=== PATIENT | female | born 1945 | race Caucasian/White ===

== ENCOUNTER 2016-06-05 15:21 | Emergency (ER) | payer MEDICARE, OTHER ==
[~2016-06-05] VITALS: Ht 157.5 cm; Wt 58.0 kg
[2016-06-05 15:30] VITALS: BP 161/91; PULSE 81; RESP 16; TEMP 98.3; O2SAT 100
[2016-06-05] MEDS ORDERED: DULO1CAP3 PO (17:13)
[2016-06-05] MEDS ORDERED: OMEP40CA2 PO (17:13)
[2016-06-05] MEDS ORDERED: PARO40TA2 PO (17:13)
[2016-06-05] MEDS ORDERED: LEVO75TA3 PO (17:13)
[2016-06-05] MEDS ORDERED: OXYB5TAB10 PO (17:13)
[2016-06-05] MEDS ORDERED: TOPI1TAB36 PO (17:13)
[2016-06-05] MEDS ORDERED: PROP1CAP32 PO (17:13)
[2016-06-05] MEDS ORDERED: CLON1TAB PO (17:13)
[2016-06-05] MEDS ORDERED: NEUR300C PO (17:13)
[2016-06-05] MEDS ORDERED: PARO1TAB71 PO (17:13)
[2016-06-05 17:16] VITALS: BP 166/87; PULSE 82; RESP 18; O2SAT 97
[2016-06-05] MEDS ORDERED: SODIUM CHLOR 0.9% 1000 ML INJ 1,000 ML IV SCH (17:24)
[2016-06-05] MEDS ORDERED: HYDROmorphone HCL PF 1 MG/ML VIAL IVS ONE (17:30)
[2016-06-05] MEDS ORDERED: SODIUM CHLORIDE 0.9% FLUSH 5 ML FLUSH IVF PRN (17:30)
[2016-06-05] MEDS ORDERED: ONDANSETRON HCL 4 MG/2 ML VIAL IVP ONE (17:30)
--- NOTE | 2016-06-05 17:36 | PD ---
HPI Chief Complaint: Abdominal Pain Time Seen by Provider: 16:56 Travel History International Travel<30 days: No Contact w/Intl Traveler<30days: No Traveled to known affect area: No History of Present Illness HPI The patient is a 70-year-old female who presents to the emergency department for epigastric abdominal pain. The patient has a history of previous gastric bypass that was performed in 2010 when she weighed 254 pounds. The patient had a reversal done several years later when she weighed less than 100 pounds. The patient has had a history of chronic epigastric abdominal pain since the reversal. The patient traveled from [place] yesterday till [place] , and helps of relocating after her 2 years ago. The patient has been under a lot of stress recently secondary to her living circumstances. The patient complains of epigastric abdominal pain that radiates diffusely when her abdomen is palpated. She does complain of nausea without any vomiting. The patient had a large bowel movement this normal without any visible blood. The patient does have a history of previous hysterectomy, but denies a history pancreatitis or cholecystitis. The patient does drink alcohol occasionally, approximately once per month. Patient denies any fever, chills, or sweats. The patient does have a history of atrial fibrillation for which she takes an antiarrhythmic medication. PFSH Past Medical History Heart Rhythm Problems: Yes (A FIB) Cardiovascular Problems: Yes (hx of a-fib) Diminished Hearing: Yes Headaches: Yes (MIGRAINES) Ulcer: Yes Tetanus Vaccination: Unknown ?: Not Past Surgical History Hysterectomy: Yes Other Surgery: Yes (GASTRIC BYPASS AND REVERSAL) Social History Alcohol Use: Yes Tobacco Use: Yes (10 CIGS PER DAY) Substance Use: No Allergies-Medications (Allergen,Severity, Reaction): Coded Allergies: Codeine (Verified Allergy, Intermediate, headache,n/v, 06/05/16) Morphine (Verified Allergy, Intermediate, headache,n/v, 06/05/16) Oxycontin (Verified Allergy, Intermediate, headaches,n/v, 06/05/16) Reported Meds & Prescriptions Reported Meds & Active Scripts Active Reported Omeprazole 40 Mg Cap 80 Mg PO DAILY Clonazepam 1 Mg Tab 1 Mg PO HS Neurontin (Gabapentin) 300 Mg Cap 900 Mg PO TID Paroxetine (Paroxetine HCl) 10 Mg Tab 10 Mg PO DAILY Ditropan (Oxybutynin Chloride) 5 Mg Tab 5 Mg PO DAILY Levothyroxine (Levothyroxine Sodium) 75 Mcg Tab 75 Mcg PO DAILY Duloxetine DR (Duloxetine HCl) 60 Mg Capdr 60 Mg PO DAILY Propafenone ER (Propafenone HCl) 225 Mg Cap 225 Mg PO Q12HR Topiramate 50 Mg Tab 75 Mg PO HS Paroxetine (Paroxetine HCl) 40 Mg Tab 40 Mg PO DAILY Review of Systems Except as stated in HPI: all other systems reviewed are Neg General / Constitutional: No: Fever, Chills Cardiovascular: Positive: Irregular Rhythm (history of atrial fibrillation), No: Chest Pain or Discomfort Respiratory: No: Shortness of Breath Gastrointestinal: Positive: Nausea, Abdominal Pain, No: Vomiting, Diarrhea, Constipation Genitourinary: No: Dysuria Musculoskeletal: No: Weakness Neurologic: No: Dizziness Physical Exam Narrative GENERAL: Awake, alert, pleasant 70-year-old female who appears her stated age and is in no acute respiratory distress. SKIN: Warm and dry. HEAD: Atraumatic. Normocephalic. EYES: No injection or drainage. ENT: No nasal bleeding or discharge. Slightly dry mucous membranes. NECK: Trachea midline. No JVD. CARDIOVASCULAR: Regular rate and rhythm. No murmur appreciated. RESPIRATORY: No accessory muscle use. Clear to auscultation. Breath sounds equal bilaterally. GASTROINTESTINAL: Abdomen soft, tender to palpation epigastrium and upper quadrant, but no rebound tenderness, guarding, rigidity. MUSCULOSKELETAL: No obvious deformities. No clubbing. No cyanosis. No edema. NEUROLOGICAL: Awake and alert. No obvious cranial nerve deficits. Motor grossly within normal limits. Normal speech. PSYCHIATRIC: Appropriate mood and affect; insight and judgment normal. Data Data Last Documented VS Vital Signs Date Time Temp Pulse Resp B/P Pulse Ox O2 Delivery O2 Flow Rate FiO2 06/05/16 18:56 Room Air 06/05/16 17:16 82 18 166/87 97 06/05/16 15:30 98.3 Orders Urinalysis - C+S If Indicated (06/05/16 15:23) Complete Blood Count With Diff (06/05/16 17:24) Comprehensive Metabolic Panel (06/05/16 17:24) Lipase (06/05/16 17:24) Lactic Acid (06/05/16 17:24) Prothrombin Time / Inr (Pt) (06/05/16 17:24) Act Partial Throm Time (Ptt) (06/05/16 17:24) Ct Abd/Pel W/O Iv Contrast (06/05/16 17:24) Iv Access Insert/Monitor (06/05/16 17:24) Ecg Monitoring (06/05/16 17:24) Oximetry (06/05/16 17:24) Ondansetron Inj (Zofran Inj) (06/05/16 17:30) Sodium Chlor 0.9% 1000 Ml Inj (Ns 1000 M (06/05/16 17:24) Sodium Chloride 0.9% Flush (Ns Flush) (06/05/16 17:30) Electrocardiogram (06/05/16 17:24) Hydromorphone Pf Inj (Dilaudid Pf Inj) (06/05/16 17:30) Sodium Chlorid 0.9% 500 Ml Inj (Ns 500 M (06/05/16 19:15) Labs Laboratory Tests Test 06/05/16 06/05/16 17:30 18:25 White Blood Count 14.0 TH/MM3 Red Blood Count 4.87 MIL/MM3 Hemoglobin 14.8 GM/DL Hematocrit 46.3 % Mean Corpuscular Volume 95.1 FL Mean Corpuscular Hemoglobin 30.4 PG Mean Corpuscular Hemoglobin 32.0 % Concent Red Cell Distribution Width 15.1 % Platelet Count 435 TH/MM3 Mean Platelet Volume 8.6 FL Neutrophils (%) (Auto) 88.1 % Lymphocytes (%) (Auto) 7.5 % Monocytes (%) (Auto) 3.2 % Eosinophils (%) (Auto) 0.1 % Basophils (%) (Auto) 1.1 % Neutrophils # (Auto) 12.4 TH/MM3 Lymphocytes # (Auto) 1.0 TH/MM3 Monocytes # (Auto) 0.4 TH/MM3 Eosinophils # (Auto) 0.0 TH/MM3 Basophils # (Auto) 0.2 TH/MM3 CBC Comment DIFF FINAL Differential Comment Prothrombin Time 10.3 SEC Prothromb Time International 0.9 RATIO Ratio Activated Partial 20.5 SEC Thromboplast Time Sodium Level 140 MEQ/L Potassium Level 3.5 MEQ/L Chloride Level 106 MEQ/L Carbon Dioxide Level 19.3 MEQ/L Anion Gap 15 MEQ/L Blood Urea Nitrogen 15 MG/DL Creatinine 0.64 MG/DL Estimat Glomerular Filtration 92 ML/MIN Rate Random Glucose 162 MG/DL Lactic Acid Level 1.5 mmol/L Calcium Level 9.3 MG/DL Total Bilirubin 0.4 MG/DL Aspartate Amino Transf 10 U/L (AST/SGOT) Alanine Aminotransferase 13 U/L (ALT/SGPT) Alkaline Phosphatase 98 U/L Total Protein 8.1 GM/DL Albumin 4.1 GM/DL Lipase 66 U/L Urine Color YELLOW Urine Turbidity SLIGHT Urine pH 7.0 Urine Specific [place] 1.016 Urine Protein 30 mg/dL Urine Glucose (UA) NEG mg/dL Urine Ketones 40 mg/dL Urine Occult Blood TRACE Urine Nitrite NEG Urine Bilirubin NEG Urine Leukocyte Esterase NEG Urine RBC 0-3 /hpf Urine WBC 0-2 /hpf Urine Squamous Epithelial 0-5 /hpf Cells Urine Amorphous Sediment MOD Urine Hyaline Casts 3-5 /lpf Urine Mucus FEW /lpf Microscopic Urinalysis Comment CULT NOT INDICATED MDM Medical Decision Making Medical Screen Exam Complete: Yes Emergency Medical Condition: Yes Medical Record Reviewed: Yes Interpretation(s) EKG reveals normal sinus rhythm with a rate of 77. No ischemic changes noted. Last Impressions Abdomen/Pelvis CT 06/05/16 1724 Signed Impressions: Service Date/Time: Sunday, June 05, 2016 17:49 - CONCLUSION: 1. Mild constipation. No acute findings. Postoperative changes of gastric bypass surgery, ventral hernia repair and hysterectomy. Carlos Sharma MD Laboratory Tests Test 06/05/16 06/05/16 17:30 18:25 White Blood Count 14.0 TH/MM3 Red Blood Count 4.87 MIL/MM3 Hemoglobin 14.8 GM/DL Hematocrit 46.3 % Mean Corpuscular Volume 95.1 FL Mean Corpuscular Hemoglobin 30.4 PG Mean Corpuscular Hemoglobin 32.0 % Concent Red Cell Distribution Width 15.1 % Platelet Count 435 TH/MM3 Mean Platelet Volume 8.6 FL Neutrophils (%) (Auto) 88.1 % Lymphocytes (%) (Auto) 7.5 % Monocytes (%) (Auto) 3.2 % Eosinophils (%) (Auto) 0.1 % Basophils (%) (Auto) 1.1 % Neutrophils # (Auto) 12.4 TH/MM3 Lymphocytes # (Auto) 1.0 TH/MM3 Monocytes # (Auto) 0.4 TH/MM3 Eosinophils # (Auto) 0.0 TH/MM3 Basophils # (Auto) 0.2 TH/MM3 CBC Comment DIFF FINAL Differential Comment Prothrombin Time 10.3 SEC Prothromb Time International 0.9 RATIO Ratio Activated Partial 20.5 SEC Thromboplast Time Sodium Level 140 MEQ/L Potassium Level 3.5 MEQ/L Chloride Level 106 MEQ/L Carbon Dioxide Level 19.3 MEQ/L Anion Gap 15 MEQ/L Blood Urea Nitrogen 15 MG/DL Creatinine 0.64 MG/DL Estimat Glomerular Filtration 92 ML/MIN Rate Random Glucose 162 MG/DL Lactic Acid Level 1.5 mmol/L Calcium Level 9.3 MG/DL Total Bilirubin 0.4 MG/DL Aspartate Amino Transf 10 U/L (AST/SGOT) Alanine Aminotransferase 13 U/L (ALT/SGPT) Alkaline Phosphatase 98 U/L Total Protein 8.1 GM/DL Albumin 4.1 GM/DL Lipase 66 U/L Urine Color YELLOW Urine Turbidity SLIGHT Urine pH 7.0 Urine Specific [place] 1.016 Urine Protein 30 mg/dL Urine Glucose (UA) NEG mg/dL Urine Ketones 40 mg/dL Urine Occult Blood TRACE Urine Nitrite NEG Urine Bilirubin NEG Urine Leukocyte Esterase NEG Urine RBC 0-3 /hpf Urine WBC 0-2 /hpf Urine Squamous Epithelial 0-5 /hpf Cells Urine Amorphous Sediment MOD Urine Hyaline Casts 3-5 /lpf Urine Mucus FEW /lpf Microscopic Urinalysis Comment CULT NOT INDICATED Differential Diagnosis Differential diagnosis includes gastritis, peptic ulcer disease, pancreatitis, biliary colic, atypical cholecystitis, AAA, inferior myocardial infarction, partial small bowel obstruction. Narrative Course IV was established, labs are drawn and sent, and the patient was placed on cardiac telemetry monitoring and continuous pulse oximetry monitoring. EKG was ordered and interpreted. The patient was administered Dilaudid, Zofran, and IV fluids. CT of the abdomen and pelvis was ordered. Patient's white count is mildly elevated at 14.0. BUN/creatinine are normal, however, bicarbonate was slightly low and UA reveals ketones, therefore, patient was administered more IV fluids. CT of the abdomen and pelvis reveals postoperative changes but no acute findings except for mild constipation. The patient will be discharged home on pain medications and antiemetics. The patient had a large bowel movement earlier today per her report. She is advised to follow-up with a primary physician and return if symptoms worsen or progress. Diagnosis Primary Impression: Abdominal pain Qualified Code: R10.13 - Epigastric pain Additional Instructions: Medications as directed. Follow-up with a primary physician. Return if symptoms worsen or progress. Please provide the patient a copy of her CT results and lab results at discharge. Med/Other Pt SpecificInfo: Prescription(s) given Scripts Ondansetron Odt (Zofran Odt)4 Mg Tab4 Mg SL Q6HR PRN (Nausea/Vomiting) #7 TAB Ref 0 Prov:Hernandez Gutierrez MD 06/05/16 Hydrocodone-Acetaminophen ([place])5-325 mg Tab1 Tab PO Q6H PRN (PAIN) #12 TAB Ref 0 Prov:Hernandez Gutierrez MD 06/05/16 Disposition: 01 DISCHARGE HOME Condition: Stable Hernandez Gutierrez MD Jun 05, 2016 17:36
[2016-06-05 17:42] LABS: AUTOMATED NEUTROPHIL # 12.4 TH/MM3 (1.8-7.7); BASOPHIL # 0.2 TH/MM3 (0-0.2); BASOPHIL % 1.1 % (0.0-2.0); EOSINOPHIL % 0.1 % (0.0-4.0); HEMATOCRIT 46.3 % (35.0-46.0); LYMPH % 7.5 % (9.0-44.0); MEAN CELL VOLUME 95.1 FL (80.0-100.0); MEAN CORPUSCULAR HEMOGLOBIN 30.4 PG (27.0-34.0); MONO % 3.2 % (0.0-8.0); NEUT % 88.1 % (16.0-70.0); PLATELET COUNT 435 TH/MM3 (150-450); RED BLOOD COUNT 4.87 MIL/MM3 (4.00-5.30); RED CELL DISTRIBUTION WIDTH 15.1 % (11.6-17.2)
[2016-06-05 17:48] LABS: HEMO FLAGS DIFF FINAL
[2016-06-05 17:49] LABS: CHLORIDE 106 MEQ/L (98-107); POTASSIUM 3.5 MEQ/L (3.5-5.1); SODIUM (NA) 140 MEQ/L (136-145)
[2016-06-05 17:53] LABS: ANION GAP 15 MEQ/L (5-15); APTT (PATIENT) 20.5 SEC (24.3-30.1); BICARBONATE 19.3 MEQ/L (21.0-32.0); BLOOD UREA NITROGEN 15 MG/DL (7-18); INTERNATIONAL NORMALIZED RATIO 0.9 RATIO; PROTHROMBIN TIME - PATIENT 10.3 SEC (9.8-11.6)
[2016-06-05 17:56] LABS: ALT (GPT) 13 U/L (10-53); AST (GOT) 10 U/L (15-37); GLOMERULAR FILTRATION RATE 92 ML/MIN (>89)
[2016-06-05 17:58] LABS: TOTAL BILIRUBIN ADULT 0.4 MG/DL (0.2-1.0)
[2016-06-05 17:59] LABS: ALKALINE PHOSPHATASE 98 U/L (45-117)
--- NOTE | 2016-06-05 18:49 | RADHPO ---
EXAM DATE/TIME: 06/05/2016 17:49 [facility] COMPARISON: No previous studies available for comparison. INDICATIONS : Epigastric abdomen pain today. ORAL CONTRAST: No oral contrast ingested. RADIATION DOSE: 10.49 CTDIvol (mGy) MEDICAL HISTORY : None SURGICAL HISTORY : Gastric bypass. Hysterectomy.gastric bypass reversal ENCOUNTER: Initial ACUITY: 1 day PAIN SCALE: 7/10 LOCATION: epigastric abdomen TECHNIQUE: Volumetric scanning of the abdomen and pelvis was performed. Using automated exposure control and ad justment of the mA and/or kV according to patient size, radiation dose was kept as low as reasonably achievable to obtain optimal diagnostic quality images. FINDINGS: There is linear scarring left lung base. No acute findings in the liver, spleen, adrenals, kidneys or pancreas. No calcified gallstones. There are postoperative changes of gastric bypass surgery, ventral hernia repair and hysterectomy. There is no bowel obstruction. No free air or free fluid. Mild constipation. CONCLUSION: 1. Mild constipation. No acute findings. Postoperative changes of gastric bypass surgery, ventral her sabrina repair and hysterectomy. Carlos Sharma MD on June 05, 2016 at 18:44 Board Certified Radiologist. This report was verified electronically.
[2016-06-05 18:58] LABS: BLOOD, URINE TRACE (NEG); GLUCOSE,URINE NEG (NEG); KETONE, URINE 40 mg/dL (NEG); NITRITE,URINE NEG (NEG)
[2016-06-05 19:04] LABS: MUCUS URINE FEW /lpf (OCC); URINE COLOR YELLOW (YELLW/STRAW)
[2016-06-05 19:05] LABS: SQUAMOUS EPITHELIAL CELL URINE 0-5 /hpf (0-5); WBC, URINE 0-2 /hpf (0-5)
[2016-06-05 19:06] LABS: COMMENT (UR) CULT NOT INDICATED; CULTURE IF INDICATED CULT NOT INDICATED; RBC, URINE 0-3 /hpf (0-3)
[2016-06-05] MEDS ORDERED: NORC5TAB PO (19:12)
[2016-06-05] MEDS ORDERED: ZOFR4TAB3 SL (19:12)
[2016-06-05] MEDS ORDERED: SODIUM CHLORID 0.9% 500 ML INJ 500 ML IV ONE (19:15)
[2016-06-05 20:18] VITALS: BP 170/89; PULSE 81; RESP 20; TEMP 98.4; O2SAT 97
--- NOTE | 2016-06-06 14:30 | EKG ---
Date Performed: 06/05/2016 Time Performed: 17:37:28 PTAGE: 70 years EKG: Sinus rhythm Normal ECG NO PREVIOUS TRACING DOCTOR: Josh Zhou Interpretating Date/Time 06/06/2016 14:27:32
== END 2016-06-05 21:00 | disposition home or self-care (01) ==
LOC: PHED 15:21
DX: R10.13 Epigastric pain (principal); I48.91 Unspecified atrial fibrillation; F17.210 Nicotine dependence, cigarettes, uncomplicated; Z98.84 Bariatric surgery status
CPT/HCPCS: 74176; 80053; 81001; 83605; 83690; 85025; 85610; 85730; 93005; 96361; 96374; 96375; 99284; J1170; J2405; J7030; J7040

== ENCOUNTER 2016-12-10 15:16 | Emergency (ER) | payer MEDICARE, OTHER ==
[~2016-12-10] VITALS: Ht 157.5 cm; Wt 52.0 kg
[~2016-12-10 15:16] MED LIST: CLON1TAB PO; DULO1CAP3 PO; LEVO75TA3 PO; NEUR300C PO; NORC5TAB PO; OMEP40CA2 PO; OXYB5TAB10 PO; PARO1TAB71 PO; PARO40TA2 PO; PROP1CAP32 PO; TOPI1TAB36 PO; ZOFR4TAB3 SL
[2016-12-10 15:28] VITALS: BP 184/89; PULSE 70; RESP 18; TEMP 97.7; O2SAT 96
--- NOTE | 2016-12-10 15:53 | PD ---
HPI Chief Complaint: Abdominal Pain Time Seen by Provider: 15:36 Travel History International Travel<30 days: No Contact w/Intl Traveler<30days: No Traveled to known affect area: No History of Present Illness HPI This 71-year-old female is complaining of epigastric pain. She has a history of peptic ulcer. She's been having increasing pain since about 3:30 last night. She has been under a lot of stress recently. She recently moved here from [place]. She is on protonic's and has been on Carafate. She ran out of her Carafate. Weeks ago. She did have 2 alcoholic drinks yesterday. She has no history of pancreatitis. She does have a history of gastric bypass in 2010. She developed a lot of complications from the bypass and had a reversed 2013, she had a similar episode to this in May and was seen here at that time [facility] Past Medical History Anxiety: Yes Heart Rhythm Problems: Yes (A FIB) Cardiovascular Problems: Yes (hx of a-fib) Diminished Hearing: Yes Fibromyalgia: Yes Headaches: Yes (MIGRAINES) Ulcer: Yes Influenza Vaccination: Yes ?: Not Past Surgical History Abdominal Surgery: Yes (bypass) Hysterectomy: Yes Joint Replacement: Yes (right knee) Other Surgery: Yes (GASTRIC BYPASS AND REVERSAL) Social History Alcohol Use: Yes Tobacco Use: Yes (10 CIGS PER DAY) Substance Use: No Allergies-Medications (Allergen,Severity, Reaction): Coded Allergies: codeine (Unverified Allergy, Intermediate, headache,n/v, 12/10/16) morphine (Unverified Allergy, Intermediate, headache,n/v, 12/10/16) oxycodone (Unverified Allergy, Intermediate, headaches,n/v, 12/10/16) Reported Meds & Prescriptions Reported Meds & Active Scripts Active Reported Omeprazole 40 Mg Cap 80 Mg PO DAILY Clonazepam 1 Mg Tab 1 Mg PO HS Neurontin (Gabapentin) 300 Mg Cap 900 Mg PO TID Paroxetine (Paroxetine HCl) 10 Mg Tab 10 Mg PO DAILY Ditropan (Oxybutynin Chloride) 5 Mg Tab 5 Mg PO DAILY Levothyroxine (Levothyroxine Sodium) 75 Mcg Tab 75 Mcg PO DAILY Duloxetine DR (Duloxetine HCl) 60 Mg Capdr 60 Mg PO DAILY Topiramate 50 Mg Tab 75 Mg PO HS Paroxetine (Paroxetine HCl) 40 Mg Tab 40 Mg PO DAILY Review of Systems General / Constitutional: No: Fever, Chills Eyes: No: Diploplia, Blurred Vision HENT: No: Headaches, Vertigo Cardiovascular: No: Chest Pain or Discomfort Respiratory: No: Cough, Shortness of Breath Gastrointestinal: Positive: Abdominal Pain Genitourinary: No: Frequency, Dysuria Musculoskeletal: No: Myalgias Skin: No Rash Hematologic/Lymphatic: No: Easy Bruising Physical Exam Narrative GENERAL: Female SKIN: Focused skin assessment warm/dry. HEAD: Atraumatic. Normocephalic. EYES: Pupils equal and round. No scleral icterus. No injection or drainage. ENT: No nasal bleeding or discharge. Mucous membranes pink and moist. NECK: Trachea midline. No JVD. CARDIOVASCULAR: Regular rate and rhythm. No murmur appreciated. RESPIRATORY: No accessory muscle use. Clear to auscultation. Breath sounds equal bilaterally. GASTROINTESTINAL: Abdomen soft, there is epigastric tenderness, nondistended. Hepatic and splenic margins not palpable. MUSCULOSKELETAL: No obvious deformities. No clubbing. No cyanosis. No edema. NEUROLOGICAL: Awake and alert. No obvious cranial nerve deficits. Motor grossly within normal limits. Normal speech. PSYCHIATRIC: Appropriate mood and affect; insight and judgment normal. Data Data Last Documented VS Vital Signs Date Time Temp Pulse Resp B/P (MAP) Pulse Ox O2 Delivery O2 Flow Rate FiO2 12/10/16 15:28 97.7 70 18 184/89 (120) 96 Orders Orders Complete Blood Count With Diff (12/10/16 15:48) Comprehensive Metabolic Panel (12/10/16 15:48) Lipase (12/10/16 15:48) Sodium Chlor 0.9% 1000 Ml Inj (Ns 1000 M (12/10/16 16:00) Ondansetron Inj (Zofran Inj) (12/10/16 16:00) Hydromorphone Pf Inj (Dilaudid Pf Inj) (12/10/16 16:00) [facility] Medical Decision Making Medical Screen Exam Complete: Yes Emergency Medical Condition: Yes Medical Record Reviewed: Yes Differential Diagnosis Differential includes gastritis, pancreatitis Narrative Course Lipase have been ordered. Patient is given pain medication. Diagnosis Primary Impression: Peptic ulcer disease Scripts Sucralfate (Carafate) 1 Gm Tab 1 GM PO QID for Ulcer Prevention, #120 TAB 0 Refills On empty stomach Prov: MacMahon,Antonio MD 12/10/16 Disposition: 01 DISCHARGE HOME Condition: Stable Antonio Bell MD Dec 10, 2016 15:53
[2016-12-10] MEDS ORDERED: CARA1TAB6 PO (15:55)
[2016-12-10] MEDS ORDERED: LIDOCAINE VISCOUS 2% SOLN 15 ML UDC PO STA (15:57)
[2016-12-10] MEDS ORDERED: ONDANSETRON HCL 4 MG/2 ML VIAL IV PUSH ONE (16:00)
[2016-12-10] MEDS ORDERED: SODIUM CHLOR 0.9% 1000 ML INJ 1,000 ML IV ONE (16:00)
[2016-12-10] MEDS ORDERED: ALUMINUM/MAGNESIUM/SIMETH 30 ML CUP PO ONE (16:00)
[2016-12-10] MEDS ORDERED: HYDROmorphone HCL PF 1 MG/ML VIAL IV PUSH ONE (16:00)
[2016-12-10 16:11] LABS: AUTOMATED NEUTROPHIL # 9.1 TH/MM3 (1.8-7.7); BASOPHIL # 0.1 TH/MM3 (0-0.2); BASOPHIL % 1.2 % (0.0-2.0); EOSINOPHIL % 0.3 % (0.0-4.0); HEMATOCRIT 51.6 % (35.0-46.0); HEMO FLAGS DIFF FINAL; LYMPH % 9.1 % (9.0-44.0); MEAN CELL VOLUME 98.2 FL (80.0-100.0); MEAN CORPUSCULAR HEMOGLOBIN 30.9 PG (27.0-34.0); MEAN CORPUSCULAR HGB CONC 31.4 % (32.0-36.0); MONO % 2.5 % (0.0-8.0); NEUT % 86.9 % (16.0-70.0); PLATELET COUNT 486 TH/MM3 (150-450); RED BLOOD COUNT 5.25 MIL/MM3 (4.00-5.30); RED CELL DISTRIBUTION WIDTH 15.6 % (11.6-17.2); WHITE BLOOD COUNT 10.5 TH/MM3 (4.0-11.0)
[2016-12-10 16:19] LABS: CHLORIDE 99 MEQ/L (98-107); POTASSIUM 4.3 MEQ/L (3.5-5.1); SODIUM (NA) 135 MEQ/L (136-145)
[2016-12-10 16:23] LABS: ANION GAP 12 MEQ/L (5-15); BICARBONATE 23.6 MEQ/L (21.0-32.0); BLOOD UREA NITROGEN 13 MG/DL (7-18)
[2016-12-10 16:26] LABS: ALT (GPT) 16 U/L (10-53); AST (GOT) 14 U/L (15-37); GLOMERULAR FILTRATION RATE 107 ML/MIN (>89)
[2016-12-10 16:27] LABS: TOTAL BILIRUBIN ADULT 0.4 MG/DL (0.2-1.0)
[2016-12-10 16:28] LABS: ALKALINE PHOSPHATASE 87 U/L (45-117)
[2016-12-10] MEDS ORDERED: SUCRALFATE 1 GM TAB PO ONE (16:45)
--- NOTE | 2016-12-10 17:06 | PD ---
Data Data Last Documented VS Vital Signs Date Time Temp Pulse Resp B/P (MAP) Pulse Ox O2 Delivery O2 Flow Rate FiO2 12/10/16 15:28 97.7 70 18 184/89 (120) 96 Orders Orders Complete Blood Count With Diff (12/10/16 15:48) Comprehensive Metabolic Panel (12/10/16 15:48) Lipase (12/10/16 15:48) Sodium Chlor 0.9% 1000 Ml Inj (Ns 1000 M (12/10/16 16:00) Ondansetron Inj (Zofran Inj) (12/10/16 16:00) Hydromorphone Pf Inj (Dilaudid Pf Inj) (12/10/16 16:00) Al-Mag Hy-Si 40-40-4 Mg/Ml Liq (Mag-Al P (12/10/16 16:00) Lidocaine 2% Viscous (Xylocaine 2% Visco (12/10/16 15:57) Electrocardiogram (12/10/16 ) Sucralfate (Carafate) (12/10/16 16:45) Labs Laboratory Tests Test 12/10/16 16:00 White Blood Count 10.5 TH/MM3 Red Blood Count 5.25 MIL/MM3 Hemoglobin 16.2 GM/DL Hematocrit 51.6 % Mean Corpuscular Volume 98.2 FL Mean Corpuscular Hemoglobin 30.9 PG Mean Corpuscular Hemoglobin Concent 31.4 % Red Cell Distribution Width 15.6 % Platelet Count 486 TH/MM3 Mean Platelet Volume 8.1 FL Neutrophils (%) (Auto) 86.9 % Lymphocytes (%) (Auto) 9.1 % Monocytes (%) (Auto) 2.5 % Eosinophils (%) (Auto) 0.3 % Basophils (%) (Auto) 1.2 % Neutrophils # (Auto) 9.1 TH/MM3 Lymphocytes # (Auto) 1.0 TH/MM3 Monocytes # (Auto) 0.3 TH/MM3 Eosinophils # (Auto) 0.0 TH/MM3 Basophils # (Auto) 0.1 TH/MM3 CBC Comment DIFF FINAL Differential Comment Blood Urea Nitrogen 13 MG/DL Creatinine 0.56 MG/DL Random Glucose 158 MG/DL Total Protein 8.0 GM/DL Albumin 3.8 GM/DL Calcium Level 9.8 MG/DL Alkaline Phosphatase 87 U/L Aspartate Amino Transf (AST/SGOT) 14 U/L Alanine Aminotransferase (ALT/SGPT) 16 U/L Total Bilirubin 0.4 MG/DL Sodium Level 135 MEQ/L Potassium Level 4.3 MEQ/L Chloride Level 99 MEQ/L Carbon Dioxide Level 23.6 MEQ/L Anion Gap 12 MEQ/L Estimat Glomerular Filtration Rate 107 ML/MIN Lipase 87 U/L [facility] Supervised Visit with MIRANDA: No Narrative Course The patient was initially evaluated by the previous provider and sent out to me at the beginning of my shift at approximately 4:00 PM pending labs and disposition. See his note for further details. Briefly this is a 71-year-old female with history of peptic ulcer disease who recently had an upper endoscopy about a month ago showing peptic ulcers who is on Protonix and Carafate, however ran out of her Carafate 3 weeks ago, here for evaluation of epigastric abdominal pain since yesterday. Pain feels very similar to exacerbation of peptic ulcer disease in the past. She was provided Dilaudid, Protonix, GI cocktail, and Carafate here in the emergency department. On reassessment she is feeling significantly improved. Her abdominal exam shows no tenderness. EKG shows sinus, rate 68, normal axis, short IA interval, prolonged QT interval, no acute ischemic abnormalities. CBC is remarkable for hemoglobin 16.6, hematocrit 51.6. The patient smokes. CMP is unremarkable. Lipase is 87. Patient feels well enough to be discharged home. She was informed on when to return to the emergency department. PMD follow-up this week. She verbalizes understanding and agreement with plan. Diagnosis Primary Impression: Peptic ulcer disease Referrals: Primary Care Physician 1 week Additional Instruction: Follow-up with a primary care physician this week. Return to the emergency department for worsening symptoms or any other concerns. Scripts Sucralfate (Carafate) 1 Gm Tab 1 GM PO QID for Ulcer Prevention, #120 TAB 0 Refills On empty stomach Prov: Antonio Bell MD 12/10/16 Disposition: 01 DISCHARGE HOME Condition: Stable Vinay Longo MD Dec 10, 2016 17:06
--- NOTE | 2016-12-10 22:19 | EKG ---
Date Performed: 12/10/2016 Time Performed: 16:28:27 PTAGE: 71 years EKG: Sinus rhythm WITH SHORT AL INTERVAL PROLONGED QT INTERVAL ABNORMAL ECG PREVIOUS TRACING : 06/05/2016 17.37 Compared to prior tracing no significant change DOCTOR: Alessio Kruse Interpretating Date/Time 12/10/2016 22:18:01
[2017-01-19] MEDS ORDERED: CARA1TAB6 PO (16:43)
[2017-01-23] MEDS ORDERED: TOPI1TAB36 PO (15:10)
[2017-01-23] MEDS ORDERED: CLON1TAB PO (15:41)
[2017-01-27] MEDS ORDERED: NEUR300C PO (14:34)
[2017-01-27] MEDS ORDERED: OXYB5TAB10 PO (14:34)
== END 2016-12-10 17:42 | disposition home or self-care (01) ==
LOC: PHED 15:16
DX: K27.9 Peptic ulcer, site unspecified, unspecified as acute or chronic, without hemorrhage or perforation (principal); R94.31 Abnormal electrocardiogram [ECG] [EKG]; I48.91 Unspecified atrial fibrillation; M79.7 Fibromyalgia; F17.210 Nicotine dependence, cigarettes, uncomplicated; Z98.84 Bariatric surgery status
CPT/HCPCS: 80053; 83690; 85025; 93005; 96361; 96374; 96375; 99284; J1170; J2405; J7030

== ENCOUNTER 2016-12-13 10:45 | Inpatient (IN) | payer MEDICARE, OTHER ==
[2016-12-13] VITALS (8 sets, daily range): BP systolic 139–185; BP diastolic 74–98; PULSE 73–91; RESP 16–18; TEMP 98–99.5; O2SAT 94–98
[~2016-12-13] VITALS: Ht 157.5 cm; Wt 54.5 kg
[~2016-12-13 10:45] MED LIST changes: +CARA1TAB6 PO
[2016-12-13] MEDS ORDERED: HYDROmorphone HCL PF 1 MG/ML VIAL IV PUSH ONE (11:15)
[2016-12-13] MEDS ORDERED: PANTOPRAZOLE SODIUM 40 MG VIAL IV PUSH ONE (11:15)
[2016-12-13] MEDS ORDERED: ONDANSETRON HCL 4 MG/2 ML VIAL IV PUSH ONE ×2 (11:15→13:15)
[2016-12-13] MEDS ORDERED: SODIUM CHLORID 0.9% 500 ML INJ 500 ML IV ONE (11:15)
[2016-12-13 11:34] LABS: BLOOD, URINE MOD (NEG); GLUCOSE,URINE NEG (NEG); KETONE, URINE NEG (NEG); NITRITE,URINE NEG (NEG)
--- NOTE | 2016-12-13 11:38 | PD ---
HPI Chief Complaint: Abdominal Pain Time Seen by Provider: 11:04 Travel History International Travel<30 days: No Contact w/Intl Traveler<30days: No Traveled to known affect area: No History of Present Illness HPI 71-year-old female is noting progressive epigastric abdominal pain since she was here. She states that Carafate liquid usually works better for her than pills but this pain is gotten to the point that it is worse and she cannot tolerate it. She is worried something more severe is going on. Quality pain is sharp. Severity severe per patient. She denies specific modifying factors. She denies other concurrent complaints. PFSH Past Medical History Anxiety: Yes Heart Rhythm Problems: Yes (A FIB) Cardiovascular Problems: Yes (hx of a-fib) Diminished Hearing: Yes Fibromyalgia: Yes Headaches: Yes (MIGRAINES) Ulcer: Yes Past Surgical History Abdominal Surgery: Yes (bypass) Hysterectomy: Yes Joint Replacement: Yes (right knee) Other Surgery: Yes (GASTRIC BYPASS AND REVERSAL) Social History Alcohol Use: Yes Tobacco Use: Yes (10 CIGS PER DAY) Substance Use: No Allergies-Medications (Allergen,Severity, Reaction): Coded Allergies: codeine (Unverified Allergy, Intermediate, headache,n/v, 12/13/16) morphine (Unverified Allergy, Intermediate, headache,n/v, 12/13/16) oxycodone (Unverified Allergy, Intermediate, headaches,n/v, 12/13/16) Reported Meds & Prescriptions Reported Meds & Active Scripts Active Carafate (Sucralfate) 1 Gm Tab 1 Gm PO QID On empty stomach Reported Omeprazole 40 Mg Cap 80 Mg PO DAILY Clonazepam 1 Mg Tab 1 Mg PO HS Neurontin (Gabapentin) 300 Mg Cap 900 Mg PO TID Paroxetine (Paroxetine HCl) 10 Mg Tab 10 Mg PO DAILY Ditropan (Oxybutynin Chloride) 5 Mg Tab 5 Mg PO DAILY Levothyroxine (Levothyroxine Sodium) 75 Mcg Tab 75 Mcg PO DAILY Duloxetine DR (Duloxetine HCl) 60 Mg Capdr 60 Mg PO DAILY Topiramate 50 Mg Tab 75 Mg PO HS Paroxetine (Paroxetine HCl) 40 Mg Tab 40 Mg PO DAILY Review of Systems Except as stated in HPI: all other systems reviewed are Neg Physical Exam Narrative GENERAL: Well-nourished, well-developed patient. Uncomfortable SKIN: Warm and dry. HEAD: Normocephalic and atraumatic. EYES: No injection or drainage. ENT: No nasal drainage noted. NECK: Supple, trachea midline. CARDIOVASCULAR: Regular rate and rhythm RESPIRATORY: Breath sounds equal bilaterally. No accessory muscle use. GASTROINTESTINAL: Abdomen soft, tender in epigastric area, nondistended. EXTREMITIES: No edema. NEUROLOGICAL: Awake and alert. Motor and sensory grossly within normal limits. Normal speech. Data Data Last Documented VS Vital Signs Date Time Temp Pulse Resp B/P (MAP) Pulse Ox O2 Delivery O2 Flow Rate FiO2 12/13/16 11:36 97 Room Air 12/13/16 10:58 98.4 91 16 185/98 (127) Orders Orders Complete Blood Count With Diff (12/13/16 11:15) Comprehensive Metabolic Panel (12/13/16 11:15) Urinalysis - C+S If Indicated (12/13/16 11:15) Lipase (12/13/16 11:15) Iv Access Insert/Monitor (12/13/16 11:15) Oximetry (12/13/16 11:15) Pantoprazole Inj (Protonix Inj) (12/13/16 11:15) Ct Abd/Pel W/O Iv Contrast (12/13/16 ) Hydromorphone Pf Inj (Dilaudid Pf Inj) (12/13/16 11:15) Ondansetron Inj (Zofran Inj) (12/13/16 11:15) Sodium Chlorid 0.9% 500 Ml Inj (Ns 500 M (12/13/16 11:15) Ct Abd/Pel W Iv Contrast(Rout) (12/13/16 ) Diatrizoate Liq ( Gastrodayami Liq) (12/13/16 13:02) Ondansetron Inj (Zofran Inj) (12/13/16 13:15) Admit Order (Ed Use Only) (12/13/16 13:10) Labs Laboratory Tests Test 12/13/16 11:30 White Blood Count 15.4 TH/MM3 Red Blood Count 5.43 MIL/MM3 Hemoglobin 17.0 GM/DL Hematocrit 52.2 % Mean Corpuscular Volume 96.2 FL Mean Corpuscular Hemoglobin 31.4 PG Mean Corpuscular Hemoglobin Concent 32.6 % Red Cell Distribution Width 14.9 % Platelet Count 591 TH/MM3 Mean Platelet Volume 7.9 FL Neutrophils (%) (Auto) 76.5 % Lymphocytes (%) (Auto) 12.1 % Monocytes (%) (Auto) 7.2 % Eosinophils (%) (Auto) 0.1 % Basophils (%) (Auto) 4.1 % Neutrophils # (Auto) 11.8 TH/MM3 Lymphocytes # (Auto) 1.9 TH/MM3 Monocytes # (Auto) 1.1 TH/MM3 Eosinophils # (Auto) 0.0 TH/MM3 Basophils # (Auto) 0.6 TH/MM3 CBC Comment DIFF FINAL Differential Comment Urine Collection Type CLEAN CATCH Urine Color YELLOW Urine Turbidity SLIGHT Urine pH 8.0 Urine Specific [place] 1.015 Urine Protein 300 OR GREATER mg/dL Urine Glucose (UA) NEG mg/dL Urine Ketones NEG mg/dL Urine Occult Blood MOD Urine Nitrite NEG Urine Bilirubin NEG Urine Leukocyte Esterase NEG Urine RBC 15-19 /hpf Urine WBC 0-2 /hpf Urine Squamous Epithelial Cells 0-5 /hpf Urine Renal Epithelial Cells 0-5 /hpf Urine Amorphous Sediment LARGE Microscopic Urinalysis Comment CULT NOT INDICATED Urine Collection Time 11:30 Blood Urea Nitrogen 13 MG/DL Creatinine 0.95 MG/DL Random Glucose 163 MG/DL Total Protein 8.3 GM/DL Albumin 3.9 GM/DL Calcium Level 9.3 MG/DL Alkaline Phosphatase 81 U/L Aspartate Amino Transf (AST/SGOT) 12 U/L Alanine Aminotransferase (ALT/SGPT) 14 U/L Total Bilirubin 0.3 MG/DL Sodium Level 131 MEQ/L Potassium Level 3.4 MEQ/L Chloride Level 93 MEQ/L Carbon Dioxide Level 29.3 MEQ/L Anion Gap 9 MEQ/L Estimat Glomerular Filtration Rate 58 ML/MIN Lipase 110 U/L [facility] Medical Decision Making Medical Screen Exam Complete: Yes Emergency Medical Condition: Yes Medical Record Reviewed: Yes (past history confirm, recent ER visit reviewed with lab work within normal limits) Interpretation(s) CBC & BMP Diagram 12/13/16 11:30 Total Protein 8.3 H, Albumin 3.9, Calcium Level 9.3, Alkaline Phosphatase 81, Aspartate Amino Transf (AST/SGOT) 12 L, Alanine Aminotransferase (ALT/SGPT) 14, Total Bilirubin 0.3 Last 24 hours Impressions Abdomen/Pelvis CT 12/13/16 0000 Signed Impressions: Service Date/Time: Tuesday, December 13, 2016 11:47 - CONCLUSION: There are interim surgical [place] in the small bowel in the pelvic inlet right abdomen with an isolated loop of prominent small bowel. Additionally in the upper abdomen there is a comma shaped loop of bowel with maximum width being approximately a centimeters of its left side and on the right gradually tapering into a narrow area. This latter finding suggest the possibility of a volvulus No evidence of renal or ureteral calculi or obstructive uropathy. Gurvinder Hayes MD Discussed with radiologist who recommends long contrast by mouth study versus barium enema ct with oral contrast no volvulus, distended bowel loop noted question etiology Differential Diagnosis Ulcer, gastritis, pancreatitis, stone, musculoskeletal Narrative Course Will recheck blood work and check CT abdomen pelvis given extent of pain and dose with Dilaudid and Zofran and reevaluate On reexamination patient is starting to feel better after Dilaudid, updated about CT and confirmed prior surgeries with initial gastric bypass in 2010 with reversal in 2012. She states she's had probably totaled 15 surgeries given issues with her bypass but the most recent was in 2012. will check lactic and dose with one dose of zosyn while awaiting testing 1315 patient updated and agrees to care, zofran given for nausea, nurse informed and giving contrast, patient will be admitted Physician Communication Physician Communication 1234 dr shaffer states will review images and call me back, will need to be in [facility] [address] shaffer again and states to give oral contrast for better visualization [address] Shaffer and after review of bed availability at [facility] he wants patient admitted to medicine now in [facility] and work on getting her transferred up here as soon as possible while awaiting study 1450 dr shaffer updated about ct and given no volvulus on ct can stay in [place] and cancel surgery consult dr oscar updated that unable to get hold of gi for almost 2 hours and consult placed in computer and will change to [place] for admission Diagnosis Primary Impression: Abdominal pain Qualified Codes: R10.13 - Epigastric pain Additional Impression: Leukocytosis Qualified Codes: D72.829 - Elevated white blood cell count, unspecified Admitting Information Admitting Physician Requests: Admit Lesly Sahu MD Dec 13, 2016 11:38
[2016-12-13 11:41] LABS: AUTOMATED NEUTROPHIL # 11.8 TH/MM3 (1.8-7.7); BASOPHIL # 0.6 TH/MM3 (0-0.2); BASOPHIL % 4.1 % (0.0-2.0); EOSINOPHIL % 0.1 % (0.0-4.0); HEMATOCRIT 52.2 % (35.0-46.0); HEMO FLAGS DIFF FINAL; LYMPH % 12.1 % (9.0-44.0); LYMPHOCYTE # 1.9 TH/MM3 (1.0-4.8); MEAN CELL VOLUME 96.2 FL (80.0-100.0); MEAN CORPUSCULAR HEMOGLOBIN 31.4 PG (27.0-34.0); MEAN CORPUSCULAR HGB CONC 32.6 % (32.0-36.0); MONO % 7.2 % (0.0-8.0); NEUT % 76.5 % (16.0-70.0); PLATELET COUNT 591 TH/MM3 (150-450); RED BLOOD COUNT 5.43 MIL/MM3 (4.00-5.30); RED CELL DISTRIBUTION WIDTH 14.9 % (11.6-17.2); WHITE BLOOD COUNT 15.4 TH/MM3 (4.0-11.0)
[2016-12-13 11:43] LABS: METHOD OF COLLECTION CLEAN CATCH; RBC, URINE 15-19 /hpf (0-3); URINE COLOR YELLOW (YELLW/STRAW); WBC, URINE 0-2 /hpf (0-5)
[2016-12-13 11:44] LABS: COMMENT (UR) CULT NOT INDICATED; CULTURE IF INDICATED CULT NOT INDICATED; RENAL EPITHELIAL CELLS 0-5 /hpf; SQUAMOUS EPITHELIAL CELL URINE 0-5 /hpf (0-5)
[2016-12-13 12:10] LABS: ALKALINE PHOSPHATASE 81 U/L (45-117); ALT (GPT) 14 U/L (10-53); ANION GAP 9 MEQ/L (5-15); AST (GOT) 12 U/L (15-37); BICARBONATE 29.3 MEQ/L (21.0-32.0); BLOOD UREA NITROGEN 13 MG/DL (7-18); CHLORIDE 93 MEQ/L (98-107); GLOMERULAR FILTRATION RATE 58 ML/MIN (>89); POTASSIUM 3.4 MEQ/L (3.5-5.1); SODIUM (NA) 131 MEQ/L (136-145); TOTAL BILIRUBIN ADULT 0.3 MG/DL (0.2-1.0)
--- NOTE | 2016-12-13 12:10 | RADRPT ---
EXAM DATE/TIME: 12/13/2016 11:47 [facility] COMPARISON: CT ABDOMEN & PELVIS W/O CONTRAST, June 05, 2016, 17:49. INDICATIONS : Mid abdominal pain. Evaluate for calculi. ORAL CONTRAST: No oral contrast ingested. RADIATION DOSE: 7.93 CTDIvol (mGy) MEDICAL HISTORY : None SURGICAL HISTORY : Gastric bypass. ENCOUNTER: Initial ACUITY: 2 days PAIN SCALE: 7/10 LOCATION: abdomen TECHNIQUE: Volumetric scanning of the abdomen and pelvis was performed. Using automated exposure control and ad justment of the mA and/or kV according to patient size, radiation dose was kept as low as reasonably achievable to obtain optimal diagnostic quality images. DICOM format image data is available electro nically for review and comparison. FINDINGS: Postoperative changes of gastric bypass surgery appreciated as well as ventral hernia repair and hyst erectomy. Additionally in the antrum there is apparently surgical clips in the region of small bowel at the pelvic inlet. This isolated loop of small bowel which is somewhat prominent remainder small lois wel being prominent. In the upper abdomen there is a condylar shaped loop of bowel which in one proje ction to the left has a increased width of 8 cm and tapers toward the right abdomen. Tension this cou ld represent some type of volvulus. CONCLUSION: There are interim surgical [place] in the small bowel in the pelvic inlet right abdomen with an isola lonnie loop of prominent small bowel. Additionally in the upper abdomen there is a comma shaped loop of bowel with maximum width being approximately a centimeters of its left side and on the right graduall y tapering into a narrow area. This latter finding suggest the possibility of a volvulus No evidence of renal or ureteral calculi or obstructive uropathy. Gurvinder Hayes MD on December 13, 2016 at 11:57 Board Certified Radiologist. This report was verified electronically.
[2016-12-13] MEDS ORDERED: DIATRIZOATE MEGLUM/DIATRIZOATE SOD 9 ML CUP ONE (13:02)
[2016-12-13] MEDS ORDERED: PIPERACIL-TAZO 4.5 GM PREMIX 100 ML IV STA (13:16)
[2016-12-13] MEDS ORDERED: NALOXONE HCL 0.4 MG/ML AMP IV PRN (13:30)
[2016-12-13] MEDS ORDERED: MAGNESIUM HYDROXIDE SUSP 30 ML CUP PO PRN (13:30)
[2016-12-13] MEDS ORDERED: SODIUM CHLORIDE 0.9% FLUSH 10 ML FLUSH IV FLUSH PRN (13:30)
[2016-12-13] MEDS ORDERED: SENNOSIDES 8.6 MG TAB PO PRN (13:30)
[2016-12-13] MEDS ORDERED: BISACODYL 10 MG SUPP RECTAL PRN (13:30)
[2016-12-13] MEDS ORDERED: LACTULOSE SYRUP 20 GM/30 ML CUP PO PRN (13:30)
[2016-12-13] MEDS: SODIUM CHLOR 0.9% 1000 ML INJ 1,000 ML IV SCH ×2 (14:04→23:29)
[2016-12-13] MEDS ORDERED: IOHEXOL 350 MG/ML 10 ML VIAL (for RAD DIAG) IVCONTRAST ONE (14:17)
--- NOTE | 2016-12-13 14:32 | RADRPT ---
EXAM DATE/TIME: 12/13/2016 14:13 [facility] COMPARISON: CT ABDOMEN & PELVIS W/O CONTRAST, December 13, 2016, 11:47. INDICATIONS : Mid abdominal pain. Abnormal CT non contrast exam. IV CONTRAST: 85 cc Omnipaque 350 (iohexol) IV ORAL CONTRAST: Prescribed oral contrast ingested. RADIATION DOSE: 6.18 CTDIvol (mGy) MEDICAL HISTORY : None SURGICAL HISTORY : Hysterectomy. Gastric bypass. ENCOUNTER: Initial ACUITY: 2 days PAIN SCALE: 6/10 LOCATION: abdomen TECHNIQUE: Volumetric scanning of the abdomen and pelvis was performed. Using automated exposure control and adjustment of the mA and/or kV according to patient size, radiation dose was kept as low as reasonably achievable to obtain optimal diagnostic quality images. DICOM format image data is av ailable electronically for review and comparison. FINDINGS: Contrast was given and followed through the majority of small bowel. Relative to prior CT scan earlier the same day the distended loop of bowel in the upper abdomen appears to represent co cherie most likely transverse. The right colon and cecum are visualized and this does not represent a ce [place] volvulus. CONCLUSION: Distended loop of bowel in the upper abdomen represents transverse colon indeterminat e etiology but not sigmoid volvulus. Patient would benefit from GI consult and possibly barium enema for further evaluation Gurvinder Hayes MD on December 13, 2016 at 14:27 Board Certified Radiologist. This report was verified electronically.
[2016-12-13] MEDS: HYDROmorphone HCL PF 1 MG/ML VIAL IV PUSH PRN (15:43)
--- NOTE | 2016-12-13 17:36 | HHI.HP ---
[facility] Service [facility] Primary Care Physician No Primary Care Physician Admission Diagnosis intractable abdominal pain Diagnoses: Chief Complaint: Intractable nausea vomiting, abdominal pain. Travel History International Travel<30 Days: No Contact w/Intl Traveler <30 Da: No Traveled to Known Affected Are: No Sepsis Criteria SIRS Criteria (2 or more): Heart rate over 90, WBC > 48773, < 4000 or > 10% bands Criteria Outcome: Meets SIRS criteria History of Present Illness Ms. Alfaro is a 71-year-old female with a history of gastric bypass and reversal who presents to the emergency department today due to progressive epigastric abdominal pain, nausea and vomiting that started yesterday afternoon. She cannot qualify if her pain is sharp or dull but states her pain is aggravating. She could not sleep all night due to persistent pain. She also had nausea and vomiting with bilious vomitus. No blood in the vomitus. Patient also had 3 bowel movements yesterday and no blood in the stool. No changes in bladder habits. Initial CT abdomen pelvis indicated possibility of volvulus. However, a repeat abdomen and pelvis with oral contrast showed no evidence of volvulus. Patient was not transferred to the main hospital after discussing with general surgery. Review of Systems Except as stated in HPI: all other systems reviewed are Neg Past Family Social History Past Medical History migraine headache, fibromyalgia, anxiety, hypothyroidism Past Surgical History Gastric bypass surgery, hysterectomy, right knee surgery, gastric bypass reversal. Reported Medications Carafate (Sucralfate) 1 Gm Tab 1 Gm PO QID On empty stomach Reported Omeprazole 40 Mg Cap 80 Mg PO DAILY Clonazepam 1 Mg Tab 1 Mg PO HS Neurontin (Gabapentin) 300 Mg Cap 900 Mg PO TID Paroxetine (Paroxetine HCl) 10 Mg Tab 10 Mg PO DAILY Ditropan (Oxybutynin Chloride) 5 Mg Tab 5 Mg PO DAILY Levothyroxine (Levothyroxine Sodium) 75 Mcg Tab 75 Mcg PO DAILY Duloxetine DR (Duloxetine HCl) 60 Mg Capdr 60 Mg PO DAILY Topiramate 50 Mg Tab 75 Mg PO HS Paroxetine (Paroxetine HCl) 40 Mg Tab 40 Mg PO DAILY Allergies: Coded Allergies: codeine (Unverified Allergy, Intermediate, headache,n/v, 12/13/16) morphine (Unverified Allergy, Intermediate, headache,n/v, 12/13/16) oxycodone (Unverified Allergy, Intermediate, headaches,n/v, 12/13/16) Family History Mother had heart disease. Father had pancreatic cancer. Social History Patient smokes about 1 pack a day. Drinks socially. Physical Exam Vital Signs Vital Signs Date Time Temp Pulse Resp B/P (MAP) Pulse Ox O2 Delivery O2 Flow Rate FiO2 12/13/16 17:05 96 21 12/13/16 16:08 12/13/16 15:31 99.5 74 16 144/74 (97) 98 Room Air 12/13/16 13:13 76 16 144/81 (102) 98 Room Air 12/13/16 11:36 97 Room Air 12/13/16 10:58 98.4 91 16 185/98 (127) 98 Physical Exam GENERAL: This is a well-nourished, well-developed patient, in no apparent distress. SKIN: No rashes, ecchymoses or lesions. Warm and dry. HEAD: Atraumatic. Normocephalic. No temporal or scalp tenderness. EYES: Pupils equal round and reactive. No injection or drainage. ENT: Nose without bleeding, purulent drainage or septal hematoma. Airway patent. NECK: Trachea midline. No lymphadenopathy. Supple, nontender, no meningeal signs. CARDIOVASCULAR: Regular rate and rhythm without murmurs, gallops, or rubs. No JVD. RESPIRATORY: Clear to auscultation. Breath sounds equal bilaterally. No wheezes , rales, or rhonchi. GASTROINTESTINAL: Abdomen soft, tender to palpation, nondistended. No guarding. MUSCULOSKELETAL: Extremities without clubbing, cyanosis, or edema. NEUROLOGICAL: Awake and alert. Cranial nerves II through XII intact. No focal neurological deficits. Normal speech. Laboratory Laboratory Tests Test 12/13/16 11:30 12/13/16 13:25 White Blood Count 15.4 Red Blood Count 5.43 Hemoglobin 17.0 Hematocrit 52.2 Mean Corpuscular Volume 96.2 Mean Corpuscular Hemoglobin 31.4 Mean Corpuscular Hemoglobin Concent 32.6 Red Cell Distribution Width 14.9 Platelet Count 591 Mean Platelet Volume 7.9 Neutrophils (%) (Auto) 76.5 Lymphocytes (%) (Auto) 12.1 Monocytes (%) (Auto) 7.2 Eosinophils (%) (Auto) 0.1 Basophils (%) (Auto) 4.1 Neutrophils # (Auto) 11.8 Lymphocytes # (Auto) 1.9 Monocytes # (Auto) 1.1 Eosinophils # (Auto) 0.0 Basophils # (Auto) 0.6 CBC Comment DIFF FINAL Differential Comment Urine Collection Type CLEAN CATCH Urine Color YELLOW Urine Turbidity SLIGHT Urine pH 8.0 Urine Specific [place] 1.015 Urine Protein 300 OR GREATER Urine Glucose (UA) NEG Urine Ketones NEG Urine Occult Blood MOD Urine Nitrite NEG Urine Bilirubin NEG Urine Leukocyte Esterase NEG Urine RBC 15-19 Urine WBC 0-2 Urine Squamous Epithelial Cells 0-5 Urine Renal Epithelial Cells 0-5 Urine Amorphous Sediment LARGE Microscopic Urinalysis Comment CULT NOT INDICATED Urine Collection Time 11:30 Blood Urea Nitrogen 13 Creatinine 0.95 Random Glucose 163 Total Protein 8.3 Albumin 3.9 Calcium Level 9.3 Alkaline Phosphatase 81 Aspartate Amino Transf (AST/SGOT) 12 Alanine Aminotransferase (ALT/SGPT) 14 Total Bilirubin 0.3 Sodium Level 131 Potassium Level 3.4 Chloride Level 93 Carbon Dioxide Level 29.3 Anion Gap 9 Estimat Glomerular Filtration Rate 58 Lipase 110 Lactic Acid Level 1.7 Date/Time Source Procedure Growth Status 12/13/16 13:25 Blood Peripheral Aerobic Blood Culture Pending Received 12/13/16 13:25 Blood Peripheral Anaerobic Blood Culture Pending Received Result Diagram: 12/13/16 1130 12/13/16 1130 Imaging Last Impressions Abdomen/Pelvis CT 12/13/16 0000 Signed Impressions: Service Date/Time: Tuesday, December 13, 2016 14:13 - CONCLUSION: Distended loop of bowel in the upper abdomen represents transverse colon indeterminate etiology but not sigmoid volvulus. Patient would benefit from GI consult and possibly barium enema for further evaluation MD Maggie Roberts VTE Risk Assessment Maggie VTE Risk Assessment: Mod/High Risk (score >= 2) Caprini Risk Assessment Model Point Value = 1 Point Value = 2 Point Value = 3 Point Value = 5 Age 41-60 Minor surgery BMI > 25 kg/m2 Swollen legs Varicose veins or History of unexplained or recurrent spontaneous Oral contraceptives or hormone replacement Sepsis (< 1 month) Serious lung disease, including pneumonia (< 1 month) Abnormal pulmonary function Acute myocardial infarction Congestive heart failure (< 1 month) History of inflammatory bowel disease Medical patient at bed rest Age 61-74 Arthroscopic surgery Major open surgery (> 45 min) Laparoscopic surgery (> 45 min) Malignancy Confined to bed (> 72 hours) Immobilizing plaster cast Central venous access Age >= 75 History of VTE Family history of VTE Factor V Leiden Prothrombin [id number] Lupus anticoagulant Anticardiolipin antibodies Elevated serum homocysteine Heparin-induced thrombocytopenia Other congenital or acquired thrombophilia Stroke (< 1 month) Elective arthroplasty Hip, pelvis, or leg fracture Acute spinal cord injury (< 1 month) Prophylaxis Regimen Total Risk Factor Score Risk Level Prophylaxis Regimen 0-1 Low Early ambulation 2 Moderate Order ONE of the following: *Sequential Compression Device (SCD) *Heparin 5000 units SQ BID 3-4 Higher Order ONE of the following medications: *Heparin 5000 units SQ TID *Enoxaparin/Lovenox 40 mg SQ daily (WT < 150 kg, CrCl > 30 mL/min) *Enoxaparin/Lovenox 30 mg SQ daily (WT < 150 kg, CrCl > 10-29 mL/min) *Enoxaparin/Lovenox 30 mg SQ BID (WT < 150 kg, CrCl > 30 mL/min) AND/OR *Sequential Compression Device (SCD) 5 or more Highest Order ONE of the following medications: *Heparin 5000 units SQ TID (Preferred with Epidurals) *Enoxaparin/Lovenox 40 mg SQ daily (WT < 150 kg, CrCl > 30 mL/min) *Enoxaparin/Lovenox 30 mg SQ daily (WT < 150 kg, CrCl > 10-29 mL/min) *Enoxaparin/Lovenox 30 mg SQ BID (WT < 150 kg, CrCl > 30 mL/min) AND *Sequential Compression Device (SCD) Assessment and Plan Problem List: (1) Abdominal pain ICD Code: R10.9 - Unspecified abdominal pain Status: Acute (2) History of gastric bypass ICD Code: Z98.890 - Other specified postprocedural states (3) Anxiety and depression ICD Code: F41.8 - Other specified anxiety disorders Assessment and Plan Ms. Alfaro is a 71-year-old female with a history of gastric bypass and reversal who presents to the emergency department today due to severe abdominal pain, nausea vomiting that started yesterday afternoon. - Abdominal pain - Etiology not determined. - Repeat abdomen pelvis CT scan with oral contrast shows distended loop of bowel in the upper abdomen to presents transverse colon. However no volvulus was present. - We'll give patient on normal saline at 100 cc per hour. - Also keep patient on hydromorphone 0.5 mg every 4 hours when necessary. - WBC is elevated to 15.4. Lactic acid 1.7. Will repeat Lactic acid. - Empirically start Cipro and Flagyl - both IV. If infectious etiology is not a huge concern, we can discontinue abx. - If patient is able to tolerate PO, consider switching to PO abx as Flagyl IV is apparently on low stock. - GI consult pending. - Anxiety/Depression - Continue clonazepam 1 mg by mouth daily at bedtime, duloxetine 60 mg daily. - GERD - Hypothyroidism - Continue PPI, levothyroxine 75 mg daily. Full code. Lovenox. Physician Certification 2 Midnight Certification Type: Admission for Inpatient Services Order for Inpatient Services The services are ordered in accordance with Medicare regulations or non- Medicare payer requirements, as applicable. In the case of services not specified as inpatient-only, they are appropriately provided as inpatient services in accordance with the 2-midnight benchmark. Estimated LOS (days): 2 days is the estimated time the patient will need to remain in the hospital, assuming treatment plan goals are met and no additional complications. Post-Hospital Plan: Home Problem Qualifiers (1) Abdominal pain: Qualified Codes: R10.13 - Epigastric pain Libby La DO Dec 13, 2016 17:36
[2016-12-13] MEDS: metroNIDAZOLE 500 MG INJ 100 ML IV SCH (19:47)
[2016-12-13] MEDS: SUCRALFATE 1 GM TAB PO SCH ×2 (19:47→21:57)
[2016-12-13] MEDS: DOCUSATE SODIUM 50 MG/SENNA 8.6 MG TAB PO SCH (19:48)
[2016-12-13] MEDS: SODIUM CHLORIDE 0.9% FLUSH 10 ML FLUSH IV FLUSH SCH (19:48)
[2016-12-13] MEDS: TOPIRAMATE 25 MG TAB PO SCH (19:48)
[2016-12-13] MEDS: clonazePAM 1 MG TAB PO SCH (19:48)
[2016-12-13] MEDS: ACETAMINOPHEN 325 MG TAB PO PRN (19:50)
[2016-12-13] MEDS: ENOXAPARIN SODIUM 40 MG/0.4 ML SYRINGE SQ SCH ×2 (19:51→20:00)
--- NOTE | 2016-12-13 19:52 | MB ---
cc: SIOMARA BELCHER MD DATE OF CONSULTATION 12/13/16 1947 REASON FOR REFERRAL Abdominal pain HISTORY OF PRESENT ILLNESS Thank you for the consultation. A 71-year-old lady who has multiple medical problems, mostly after gastric bypass in 2009. She ended up having multiple surgeries including revision of the bypass because of severe weight loss. Also, she has partial resection of her small bowel, PEG tube placement, adhesion surgery. The patient was doing okay. She just moved recently from [place] which put her under a lot of stress about two weeks ago and then in the last 24 hours she started having epigastric pain and she stated with nausea, vomiting. She said that the pain is dull, aggressive and she had some loose bowel movements. She also reports to me that she had an upper endoscopy and a colonoscopy that were unremarkable less than 2-3 months ago. The patient's CT scan was done in the ER which showed questionable volvulus, but then repeat CT scan showed no evidence of volvulus with some dilation of the small bowel. Currently, the patient is laying in bed comfortably. She received pain medicine in the emergency room, but she is not having any nausea and vomiting and seems to be comfortable. REVIEW OF SYSTEMS All 12-point negative except HPI. PAST SURGICAL HISTORY 1. Hysterectomy, 2. Multiple abdominal surgeries including gastric bypass and bypass reversal 3. Right knee surgery. PAST MEDICAL HISTORY 1. Fibromyalgia, 2. Anxiety, 3. Hypothyroidism 4. Headache and migraine. MEDICATIONS Reviewed in the chart. ALLERGIES CODEINE MORPHINE OXYCODONE SOCIAL HISTORY She smokes about a pack a day, drinks occasionally. FAMILY HISTORY Significant for pancreatic cancer and heart disease. PHYSICAL EXAMINATION GENERAL: Currently alert, oriented in no acute distress. She is not in pain, but she just received pain medication in the ER a few hours ago. No nausea or vomiting and seems to be well-nourished and well-developed. SKIN: No jaundice. No lesion or abnormalities. HEENT: Pupils round, reactive to light. NECK: Supple. CHEST: Clear to auscultation and percussion. CARDIAC: Regular rate and rhythm. No murmur or gallop. ABDOMEN: Soft, minimal tenderness in the epigastric area at this time. Positive bowel sounds. No hepatosplenomegaly. Multiple surgical scars. EXTREMITIES: No edema, clubbing or cyanosis. NEUROLOGIC: Neurologically intact. Alert, oriented, nonfocal. PSYCHIATRIC: Appropriate with some anxiety from the move LABORATORY DATA White count 15.4, hemoglobin 17, platelet 591. Sodium 131, potassium 3.4, BUN nine, creatinine 13, AST 12, ALT 14 and lipase 110. Urine showed some protein in the urine and no white count. ASSESSMENT/PLAN A 71-year-old lady with abdominal pain. I think this is most likely gastroenteritis because it suddenly happened. She ate a hamburger from [employer] yesterday and this happened after that. She had elevated white count. Her symptoms are resolving. The diarrhea also resolved, so CT scan did not show any volvulus so we will plan on monitoring her. She already had an endoscopy and a colonoscopy recently, so unless she develops more vomiting or more symptoms, we will just start her on clear liquids and treat her symptomatically and we will see how she does. MD ZARA Page/ /6:31 PM /7:31 PM
[2016-12-13] MEDS: CIPROFLOXACIN 400 MG PREMIX 200 ML IV SCH (21:57)
[2016-12-14] VITALS (7 sets, daily range): BP systolic 127–180; BP diastolic 68–100; PULSE 74–81; RESP 16–20; TEMP 96.8–98.5; O2SAT 95–98
[2016-12-14] MEDS: ONDANSETRON HCL 4 MG/2 ML VIAL IVP PRN ×3 (02:29→21:10)
[2016-12-14] MEDS: metroNIDAZOLE 500 MG INJ 100 ML IV SCH ×3 (02:29→17:44)
[2016-12-14] MEDS: HYDROmorphone HCL PF 1 MG/ML VIAL IV PUSH PRN ×4 (02:34→21:11)
[2016-12-14] MEDS: LEVOTHYROXINE SODIUM 75 MCG TAB PO SCH (05:21)
[2016-12-14 07:04] LABS: AUTOMATED NEUTROPHIL # 8.4 TH/MM3 (1.8-7.7); BASOPHIL % 0.4 % (0.0-2.0); EOSINOPHIL % 0.3 % (0.0-4.0); HEMATOCRIT 51.5 % (35.0-46.0); HEMO FLAGS DIFF FINAL; LYMPH % 12.8 % (9.0-44.0); LYMPHOCYTE # 1.4 TH/MM3 (1.0-4.8); MEAN CELL VOLUME 99.6 FL (80.0-100.0); MEAN CORPUSCULAR HEMOGLOBIN 31.7 PG (27.0-34.0); MEAN CORPUSCULAR HGB CONC 31.8 % (32.0-36.0); MONO % 7.2 % (0.0-8.0); NEUT % 79.3 % (16.0-70.0); PLATELET COUNT 487 TH/MM3 (150-450); RED BLOOD COUNT 5.17 MIL/MM3 (4.00-5.30); WHITE BLOOD COUNT 10.6 TH/MM3 (4.0-11.0)
[2016-12-14 07:25] LABS: BICARBONATE 26.8 MEQ/L (21.0-32.0)
[2016-12-14 09:01] LABS: POTASSIUM 2.9 MEQ/L (3.5-5.1)
[2016-12-14] MEDS ORDERED: POTASSIUM CHLORIDE 25 MEQ EFFERVESCENT TAB PO ONE (09:30)
[2016-12-14] MEDS: SODIUM CHLOR 0.9% 1000 ML INJ 1,000 ML IV SCH ×2 (09:58→17:47)
[2016-12-14] MEDS: POTASSIUM CHLOR 20 MEQ PREMIX 100 ML IV SCH ×2 (09:58→12:18)
[2016-12-14] MEDS: CIPROFLOXACIN 400 MG PREMIX 200 ML IV SCH ×2 (10:27→21:08)
[2016-12-14] MEDS: SODIUM CHLORIDE 0.9% FLUSH 10 ML FLUSH IV FLUSH SCH ×2 (10:27→21:00)
[2016-12-14] MEDS: SUCRALFATE 1 GM TAB PO SCH ×4 (10:33→21:09)
[2016-12-14] MEDS: PANTOPRAZOLE SOD 40 MG DELAYED RELEASE TAB PO SCH (10:33)
[2016-12-14] MEDS: DULoxetine HCl DR 60 MG CAP PO SCH (10:33)
[2016-12-14] MEDS: DOCUSATE SODIUM 50 MG/SENNA 8.6 MG TAB PO SCH ×2 (10:33→21:09)
[2016-12-14] MEDS: OXYBUTYNIN CHLORIDE 5 MG TAB PO SCH (10:33)
[2016-12-14] MEDS ORDERED: hydrALAZINE HCL 10 MG TAB PO ONE (13:45)
--- NOTE | 2016-12-14 16:59 | HHI.PR ---
Subjective Remarks F/u for abd pain. Patient says she feels better, says that nausea medication premedication working. Denies any diarrhea or having any bowel movements for that matter. Denies vomiting, says she doesn't have an appetite for chicken broth, has only been in taking water and juices, wants to advance her diet. Discussed with nursing, had isolated hypertension earlier today with 100 at least diastolic, ordered a one-time hydralazine by mouth Objective Vital Signs Date Time Temp Pulse Resp B/P (MAP) Pulse Ox O2 Delivery O2 Flow Rate FiO2 12/14/16 13:10 180/100 (126) 12/14/16 12:00 97.9 81 18 97 12/14/16 08:25 95 21 12/14/16 08:00 97.5 74 18 180/75 (110) 96 12/14/16 00:00 98.0 76 16 127/77 (94) 95 12/13/16 21:30 94 21 12/13/16 20:00 99.2 73 16 146/82 (103) 94 12/13/16 17:08 98.0 73 18 139/75 (96) 96 12/13/16 17:05 96 21 I/O 12/13/16 12/13/16 12/13/16 12/14/16 12/14/16 12/14/16 06:59 14:59 22:59 06:59 14:59 22:59 Intake Total 600 ml 100 ml 1376 ml 500 ml Balance 600 ml 100 ml 1376 ml 500 ml Intake Oral 380 ml IV Total 600 ml 100 ml 996 ml 500 ml # Voids 2 # Bowel Movements 0 Result Diagram: 12/14/16 0555 12/14/16 0555 Imaging Last Impressions Abdomen/Pelvis CT 12/13/16 0000 Signed Impressions: Service Date/Time: Tuesday, December 13, 2016 14:13 - CONCLUSION: Distended loop of bowel in the upper abdomen represents transverse colon indeterminate etiology but not sigmoid volvulus. Patient would benefit from GI consult and possibly barium enema for further evaluation Gurvinder Hayes MD Objective Remarks GENERAL: No acute distress CARDIOVASCULAR: Regular rate and rhythm without murmurs, gallops, or rubs. RESPIRATORY: Breath sounds equal and clear bilaterally. Unlabored breathing GASTROINTESTINAL: Abdomen soft, mild-mod suprapubic TTP, ND MUSCULOSKELETAL: No cyanosis, or edema. A/P Assessment and Plan Ms. Alfaro is a 71-year-old female with a history of gastric bypass and reversal who presents to the emergency department today due to severe abdominal pain, nausea vomiting that started yesterday afternoon. - Abdominal pain - improved. GI following appreciate recs, suspect viral GE. - consider de-escalating or discontinuing abx anna marie if afebrile. IV fluids - Anxiety/Depression - Continue clonazepam 1 mg by mouth daily at bedtime, duloxetine 60 mg daily. hypokalemia - trend in AM, replace as necessary - GERD - Hypothyroidism - Continue PPI, levothyroxine 75 mg daily. Full code. Lovenox. Chris Cope MD Dec 14, 2016 16:59
--- NOTE | 2016-12-14 18:41 | HHI.GIFU ---
Subjective Remarks Patient feeling better better today, less abdominal pain no nausea. Objective Vitals I&O Vital Signs Date Time Temp Pulse Resp B/P (MAP) Pulse Ox O2 Delivery O2 Flow Rate FiO2 12/14/16 16:00 96.8 74 20 128/68 (88) 98 12/14/16 13:10 180/100 (126) 12/14/16 12:00 97.9 81 18 97 12/14/16 08:25 95 21 12/14/16 08:00 97.5 74 18 180/75 (110) 96 12/14/16 00:00 98.0 76 16 127/77 (94) 95 12/13/16 21:30 94 21 12/13/16 20:00 99.2 73 16 146/82 (103) 94 I/O 12/13/16 12/13/16 12/13/16 12/14/16 12/14/16 12/14/16 07:00 15:00 23:00 07:00 15:00 23:00 Intake Total 600 ml 300 ml 1176 ml 500 ml 1000 ml Balance 600 ml 300 ml 1176 ml 500 ml 1000 ml Intake Oral 380 ml IV Total 600 ml 300 ml 796 ml 500 ml 1000 ml # Voids 2 # Bowel Movements 0 Laboratory Laboratory Tests Test 12/13/16 19:30 12/14/16 05:55 Lactic Acid Level 0.8 White Blood Count 10.6 Red Blood Count 5.17 Hemoglobin 16.4 Hematocrit 51.5 Mean Corpuscular Volume 99.6 Mean Corpuscular Hemoglobin 31.7 Mean Corpuscular Hemoglobin Concent 31.8 Red Cell Distribution Width 16.0 Platelet Count 487 Mean Platelet Volume 8.4 Neutrophils (%) (Auto) 79.3 Lymphocytes (%) (Auto) 12.8 Monocytes (%) (Auto) 7.2 Eosinophils (%) (Auto) 0.3 Basophils (%) (Auto) 0.4 Neutrophils # (Auto) 8.4 Lymphocytes # (Auto) 1.4 Monocytes # (Auto) 0.8 Eosinophils # (Auto) 0.0 Basophils # (Auto) 0.0 CBC Comment DIFF FINAL Differential Comment Blood Urea Nitrogen 10 Creatinine 0.68 Random Glucose 157 Calcium Level 8.4 Sodium Level 137 Potassium Level 2.9 Chloride Level 102 Carbon Dioxide Level 26.8 Anion Gap 8 Estimat Glomerular Filtration Rate 86 Date/Time Source Procedure Growth Status 8/29/17 13:25 Blood Peripheral Aerobic Blood Culture - Preliminary NO GROWTH IN 1 DAY Resulted 12/13/16 13:25 Blood Peripheral Anaerobic Blood Culture - Preliminary NO GROWTH IN 1 DAY Resulted Physical Exam HEENT: Pupils round and reactive to light; normocephalic; atraumatic; no jaundice. Throat is clear. NECK: Neck is supple, no JVD, no lymphadenopathy. CHEST: Chest is clear to auscultation and percussion. CARDIAC: Regular rate and rhythm with no murmur gallop or rubs. ABDOMEN: Soft, nondistended, minimal midepigastric tenderness; no hepatosplenomegaly; bowel sounds are present in all four quadrants. EXTREMITIES: No clubbing, cyanosis, or edema. SKIN: Normal; no rash; no jaundice. VBA DEVELOPER: No focal deficits; alert and oriented times three. Assessment and Plan Plan Patient is here because of abdominal pain which was sudden nausea vomiting, patient has multiple surgical procedures in the past including gastric bypass and revision of the bypass Possibly partial small bowel obstruction versus gastroenteritis which seems to be resolving Recommendations Advance diet as tolerated starting with clear liquid Consider stopping antibiotic If no pain and tolerating food can be discharged otherwise we need a KUB to make sure that there is no ileus versus partial obstruction persisting If the KUB is negative and continuous symptoms then she will need an upper endoscopy Rhiannon Doshi MD Dec 14, 2016 18:41
[2016-12-14] MEDS: ENOXAPARIN SODIUM 40 MG/0.4 ML SYRINGE SQ SCH (20:00)
[2016-12-14] MEDS: clonazePAM 1 MG TAB PO SCH (21:10)
[2016-12-14] MEDS: TOPIRAMATE 25 MG TAB PO SCH (21:10)
[2016-12-15] VITALS: BP 137/72; PULSE 79; RESP 18; TEMP 98; O2SAT 97
[2016-12-15] MEDS: metroNIDAZOLE 500 MG INJ 100 ML IV SCH ×3 (00:28→18:18)
[2016-12-15] MEDS: LEVOTHYROXINE SODIUM 75 MCG TAB PO SCH (05:58)
[2016-12-15] MEDS: SODIUM CHLOR 0.9% 1000 ML INJ 1,000 ML IV SCH ×3 (05:59→21:32)
[2016-12-15 08:00] VITALS: BP 125/67; PULSE 88; RESP 18; TEMP 98.4; O2SAT 96
[2016-12-15] MEDS: HYDROmorphone HCL PF 1 MG/ML VIAL IV PUSH PRN ×4 (08:09→21:27)
[2016-12-15] MEDS: ONDANSETRON HCL 4 MG/2 ML VIAL IVP PRN ×2 (08:16→21:25)
[2016-12-15] MEDS: CIPROFLOXACIN 400 MG PREMIX 200 ML IV SCH ×2 (09:03→21:28)
[2016-12-15] MEDS: DOCUSATE SODIUM 50 MG/SENNA 8.6 MG TAB PO SCH ×2 (09:04→21:24)
[2016-12-15] MEDS: SODIUM CHLORIDE 0.9% FLUSH 10 ML FLUSH IV FLUSH SCH ×2 (09:04→21:00)
[2016-12-15] MEDS: OXYBUTYNIN CHLORIDE 5 MG TAB PO SCH (09:04)
[2016-12-15] MEDS: PANTOPRAZOLE SOD 40 MG DELAYED RELEASE TAB PO SCH (09:04)
[2016-12-15] MEDS: SUCRALFATE 1 GM TAB PO SCH ×4 (09:04→21:25)
[2016-12-15] MEDS: DULoxetine HCl DR 60 MG CAP PO SCH (09:04)
[2016-12-15 12:00] VITALS: BP 190/100; PULSE 78; RESP 16; TEMP 98.2; O2SAT 96
[2016-12-15] MEDS ORDERED: ENALAPRILAT 1.25 MG/ML VIAL IV PRN (12:30)
--- NOTE | 2016-12-15 12:52 | RADRPT ---
EXAM DATE/TIME: 12/15/2016 12:34 [facility] COMPARISON: CT ABDOMEN & PELVIS W CONTRAST, December 13, 2016, 14:13. INDICATIONS : Abdominal pain, MEDICAL HISTORY : Gastroesophageal reflux disease. Ulcers. Arthritis. A-fib. Seizure. Fibromyalgia. SURGICAL HISTORY : Total knee replacement, right. Hysterectomy. Gastric bypass. ENCOUNTER: Subsequent ACUITY: 4 - 6 days PAIN SCORE: 9/10 LOCATION: abdomen FINDINGS: Supine and upright views the abdomen show oral contrast within the ascending colon and proximal trans verse colon. This generates some air-fluid levels on the upright view. Gas filled loops of nondilated small bowel. No dilated loops of bowel observed. The cecum and ascending colon are prominent in size but are smaller from the prior CT. No pneumoperitoneum. Lung bases are clear. Anchoring devices from prior ventral hernia repair noted. A scoliotic and degenerative spine. CONCLUSION: Mild gaseous distention of the ascending colon but this is less distended than on the prior study. Ot herwise, unremarkable exam. Ellis Puga Jr., MD on December 15, 2016 at 12:48 Board Certified Radiologist. This report was verified electronically.
--- NOTE | 2016-12-15 14:26 | HHI.PR ---
Subjective Remarks Patient seen and examined today for follow-up on abdominal pain. Patient states that she really has not ate anything because she still experiencing excruciating abdominal pain. Discussed the case with food service coordinator to recommended abdominal x-ray which does indicate dilated cecum and ascending colon. Objective Vitals Vital Signs Date Time Temp Pulse Resp B/P (MAP) Pulse Ox O2 Delivery O2 Flow Rate FiO2 12/15/16 12:58 18 12/15/16 12:00 98.2 78 16 190/100 (130) 96 12/15/16 08:00 98.4 88 18 125/67 (86) 96 12/15/16 00:00 98.0 79 18 137/72 (93) 97 12/14/16 20:00 98.5 78 20 143/85 (104) 98 12/14/16 16:00 96.8 74 20 128/68 (88) 98 I/O 12/14/16 12/14/16 12/14/16 12/15/16 12/15/16 12/15/16 07:00 15:00 23:00 07:00 15:00 23:00 Intake Total 1176 ml 500 ml 1320 ml 1220 ml Balance 1176 ml 500 ml 1320 ml 1220 ml Intake Oral 380 ml 120 ml 120 ml IV Total 796 ml 500 ml 1200 ml 1100 ml # Voids 2 4 0 # Bowel Movements 0 0 0 Result Diagram: 12/14/1655412/14/16 0555 Objective Remarks GENERAL: Well-developed, cachectic, in no acute distress. alert and orientated HEENT: Head is normocephalic without any lesions or masses noted. Facial features are symmetric. Eyes: Extraocular muscles are intact. Conjunctivae were clear. NECK: Supple without any masses. Trachea midline no deviation. No JVD, CARDIAC: Regular rhythm, regular rate. S1/S2 are heard. 2 or 6 ejection murmur , no gallops or rubs. LUNGS: Clear to auscultation bilaterally. No wheeze, rhonchi or rales. No use of accessory muscles on inspiration or expiration. ABDOMEN: Soft, mild tenderness noted in the left abdomen. Nondistended. Bowel sounds heard in all 4 quadrants. No organomegaly or masses. Negative rebound, negative guarding EXTREMITIES: No edema, pulses are equal bilaterally. No cyanosis or clubbing NEUROLOGY: Mood and affect appear appropriate. Cranial nerves II through XII grossly intact. Moving all extremities, speech is clear Urinary Catheter: No Vascular Central Line Catheter: No A/P Assessment and Plan Abdominal pain, persistent Multiple CT scan of the abdomen shows loops of prominent small bowel, with, shaped loop of bowel with maximum width being approximately 8 cm of the left side and right side gradually tapering to a narrow area. Suggesting volvulus Repeat CT with contrast shows distended loop bowel in the upper abdomen represents transverse colon but no volvulus. Flat and upright abdominal x-ray shows distention of the ascending colon and proximal, transverse colon. There are air-fluid levels in the upright view. Nondilated small bowel. The cecum and ascending colon are prominent in size. Copy Chief was consulted and was recommending the abdominal x-ray and possible endoscopy. However with the new findings on x-ray it was recommended patient undergo a Gastrografin enema for diagnostic/therapeutic reasons Leukocytosis Significantly improved Monitor CBC Electrolyte abnormality with hyponatremia, hypokalemia Continue monitor and replete as needed Hyperglycemia Check hemoglobin A1c Anxiety/Depression Continue home medications to include clonazepam 1 mg by mouth daily at bedtime, duloxetine 60 mg daily. Hypothyroidism Continue home medication levothyroxine 75 mg daily. DVT prevention Lovenox. Full code Discharge Planning Discharge planning 24-48 hours depending on patient's response to treatment and findings from Gastrografin enema Forrest Bradley Dec 15, 2016 14:26
[2016-12-15 15:12] LABS: CHLORIDE 104 MEQ/L (98-107); POTASSIUM 3.4 MEQ/L (3.5-5.1); SODIUM (NA) 137 MEQ/L (136-145)
--- NOTE | 2016-12-15 15:14 | HHI.GIFU ---
Subjective Remarks Patient complaining of having more nausea and Since last night with more abdominal cramping, She also feel more bloated and distended Objective Vitals I&O Vital Signs Date Time Temp Pulse Resp B/P (MAP) Pulse Ox O2 Delivery O2 Flow Rate FiO2 12/15/16 12:58 18 12/15/16 12:00 98.2 78 16 190/100 (130) 96 12/15/16 08:00 98.4 88 18 125/67 (86) 96 12/15/16 00:00 98.0 79 18 137/72 (93) 97 12/14/16 20:00 98.5 78 20 143/85 (104) 98 12/14/16 16:00 96.8 74 20 128/68 (88) 98 I/O 12/14/16 12/14/16 12/14/16 12/15/16 12/15/16 12/15/16 07:00 15:00 23:00 07:00 15:00 23:00 Intake Total 1176 ml 500 ml 1320 ml 1220 ml Balance 1176 ml 500 ml 1320 ml 1220 ml Intake Oral 380 ml 120 ml 120 ml IV Total 796 ml 500 ml 1200 ml 1100 ml # Voids 2 4 0 # Bowel Movements 0 0 0 Laboratory Laboratory Tests Test 12/15/16 14:55 Date/Time Source Procedure Growth Status 12/13/16 13:25 Blood Peripheral Aerobic Blood Culture - Preliminary NO GROWTH IN 2 DAYS Resulted 12/13/16 13:25 Blood Peripheral Anaerobic Blood Culture - Preliminary NO GROWTH IN 2 DAYS Resulted Physical Exam HEENT: Pupils round and reactive to light; normocephalic; atraumatic; no jaundice. Throat is clear. NECK: Neck is supple, no JVD, no lymphadenopathy. CHEST: Chest is clear to auscultation and percussion. CARDIAC: Regular rate and rhythm with no murmur gallop or rubs. ABDOMEN: Soft, Mildly distended, More midepigastric tenderness And throughout the abdomen; no hepatosplenomegaly; bowel sounds are present in all four quadrants. EXTREMITIES: No clubbing, cyanosis, or edema. SKIN: Normal; no rash; no jaundice. STEEL SAMPLER: No focal deficits; alert and oriented times three. Assessment and Plan Plan Patient is here because of abdominal pain which was sudden nausea vomiting, patient has multiple surgical procedures in the past including gastric bypass and revision of the bypass Possibly partial small bowel obstruction versus gastroenteritis \, Patient getting worse today with more discomfort and nausea and slightly more distended abdomen Recommendations Hold diet KUB today to rule out possible obstruction, if this is negative will proceed with upper endoscopy to rule out gastritis or esophagitis Rhiannon Kaur MD Dec 15, 2016 15:14
[2016-12-15 15:15] LABS: ANION GAP 10 MEQ/L (5-15); BICARBONATE 23.1 MEQ/L (21.0-32.0); BLOOD UREA NITROGEN 9 MG/DL (7-18)
[2016-12-15 15:19] LABS: GLOMERULAR FILTRATION RATE 112 ML/MIN (>89)
[2016-12-15 16:00] VITALS: BP 170/102; PULSE 70; RESP 18; TEMP 97.2; O2SAT 97
[2016-12-15] MEDS: cloNIDine HCL 0.1 MG TAB PO PRN (16:45)
[2016-12-15 18:55] LABS: HEMOGLOBIN A1a 1.5 %; HEMOGLOBIN A1b 1.6 %; HEMOGLOBIN Ao 84.4 %; HEMOGLOBIN LA1C 2.4 %; HEMOGLOBIN P3 3.9 %
[2016-12-15 20:00] VITALS: BP 109/65; PULSE 70; RESP 16; TEMP 98.1; O2SAT 94
[2016-12-15] MEDS: ENOXAPARIN SODIUM 40 MG/0.4 ML SYRINGE SQ SCH (20:00)
[2016-12-15] MEDS: clonazePAM 1 MG TAB PO SCH (21:24)
[2016-12-15] MEDS: TOPIRAMATE 25 MG TAB PO SCH (21:24)
[2016-12-16] VITALS: BP 107/67; PULSE 75; RESP 16; TEMP 98.4; O2SAT 95
[2016-12-16] MEDS: metroNIDAZOLE 500 MG INJ 100 ML IV SCH ×3 (02:14→17:37)
[2016-12-16] MEDS: HYDROmorphone HCL PF 1 MG/ML VIAL IV PUSH PRN ×4 (02:14→20:50)
[2016-12-16] MEDS: ONDANSETRON HCL 4 MG/2 ML VIAL IVP PRN ×2 (05:49→20:49)
[2016-12-16] MEDS: LEVOTHYROXINE SODIUM 75 MCG TAB PO SCH (05:49)
[2016-12-16 06:51] LABS: AUTOMATED NEUTROPHIL # 5.2 TH/MM3 (1.8-7.7); BASOPHIL # 0.1 TH/MM3 (0-0.2); EOSINOPHIL # 0.2 TH/MM3 (0-0.4); EOSINOPHIL % 1.8 % (0.0-4.0); HEMATOCRIT 38.7 % (35.0-46.0); LYMPH % 27.3 % (9.0-44.0); LYMPHOCYTE # 2.5 TH/MM3 (1.0-4.8); MEAN CELL VOLUME 98.3 FL (80.0-100.0); MEAN CORPUSCULAR HGB CONC 33.5 % (32.0-36.0); MONO % 12.3 % (0.0-8.0); NEUT % 57.6 % (16.0-70.0); PLATELET COUNT 400 TH/MM3 (150-450); RED BLOOD COUNT 3.93 MIL/MM3 (4.00-5.30); RED CELL DISTRIBUTION WIDTH 15.3 % (11.6-17.2); WHITE BLOOD COUNT 9.1 TH/MM3 (4.0-11.0)
[2016-12-16 06:59] LABS: HEMO FLAGS DIFF FINAL
[2016-12-16 07:09] LABS: POTASSIUM 3.1 MEQ/L (3.5-5.1)
[2016-12-16 07:32] LABS: BICARBONATE 22.5 MEQ/L (21.0-32.0); MAGNESIUM 1.8 MG/DL (1.5-2.5)
[2016-12-16 08:00] VITALS: BP 98/60; PULSE 72; RESP 17; TEMP 96.6; O2SAT 98
[2016-12-16] MEDS: DOCUSATE SODIUM 50 MG/SENNA 8.6 MG TAB PO SCH ×2 (09:00→20:49)
[2016-12-16] MEDS ORDERED: DIATRIZOATE MEGLUM/DIATRIZOATE SOD 120 ML BTL (for RAD DIAG) RECTAL ONE (09:05)
[2016-12-16] MEDS ORDERED: ONDANSETRON HCL 4 MG/2 ML VIAL IV PUSH ONE (09:45)
[2016-12-16] MEDS: PANTOPRAZOLE SOD 40 MG DELAYED RELEASE TAB PO SCH (09:54)
[2016-12-16] MEDS: SUCRALFATE 1 GM TAB PO SCH ×4 (09:55→20:49)
[2016-12-16] MEDS: CIPROFLOXACIN 400 MG PREMIX 200 ML IV SCH ×2 (09:55→20:49)
[2016-12-16] MEDS: OXYBUTYNIN CHLORIDE 5 MG TAB PO SCH (09:55)
[2016-12-16] MEDS: DULoxetine HCl DR 60 MG CAP PO SCH (09:55)
[2016-12-16] MEDS: SODIUM CHLORIDE 0.9% FLUSH 10 ML FLUSH IV FLUSH SCH ×2 (09:55→20:50)
--- NOTE | 2016-12-16 10:58 | RADRPT ---
EXAM DATE/TIME: 12/16/2016 08:00 [facility] COMPARISON: No previous studies available for comparison. INDICATIONS : Obstruction FLUORO TIME: 1.7 minutes IMAGE COUNT: 19 CONTRAST: 1. Gastroview MEDICAL HISTORY : Reflux, fibromyalgia SURGICAL HISTORY : Hysterectomy. Gastric bypass. ENCOUNTER: Initial ACUITY: 4 - 6 days PAIN SCORE: 5/10 LOCATION: Abdomen FINDINGS: A Gastrografin enema was performed. Pension Consultant film demonstrates some residual contrast within the right colon and transverse colon. Abdominal wall mesh repair is noted. Degenerative changes and scoliosis of the lumbar spine are noted. No free intraperitoneal air is noted. Gastrografin flows freely through the colon without obstruction or stricture. The cecum is identifie d by filing of the terminal ileum and appendix. Evaluation for mucosal lesions is not possible on th is limited examination. Post evacuation film demonstrates decompression of the colon with some resid ual contrast noted. CONCLUSION: 1. No colonic obstruction or stricture noted. 2. Degenerative changes and scoliosis of the lumbar spine. Anastacio Conner MD on December 16, 2016 at 10:42 Board Certified Radiologist. This report was verified electronically.
[2016-12-16] MEDS: SODIUM CHLOR 0.9% 1000 ML INJ 1,000 ML IV SCH ×2 (11:29→20:49)
[2016-12-16 12:00] VITALS: BP 199/101; PULSE 75; RESP 16; TEMP 96.6; O2SAT 95
[2016-12-16] MEDS: cloNIDine HCL 0.1 MG TAB PO PRN (12:07)
--- NOTE | 2016-12-16 12:59 | HHI.PR ---
Subjective Remarks Patient seen and examined today in follow-up for abdominal pain. Patient is planned for Gastrografin enema this morning. It has been performed and does show complete clearance of her colon. Patient is lying in bed. States that she is not that hungry. Will advance diet and see how patient tolerates. Objective Vitals Vital Signs Date Time Temp Pulse Resp B/P (MAP) Pulse Ox O2 Delivery O2 Flow Rate FiO2 12/16/16 12:00 96.6 75 16 199/101 (133) 95 12/16/16 08:00 96.6 72 17 98/60 (73) 98 12/16/16 00:00 98.4 75 16 107/67 (80) 95 12/15/16 20:00 98.1 70 16 109/65 (80) 94 12/15/16 16:00 97.2 70 18 170/102 (124) 97 12/15/16 12:58 18 I/O 12/15/16 12/15/16 12/15/16 12/16/16 12/16/16 12/16/16 06:59 14:59 22:59 06:59 14:59 22:59 Intake Total 1220 ml 350 ml 500 ml 1400 ml Output Total 975 ml 1 ml Balance 1220 ml -625 ml 500 ml 1400 ml -1 ml Intake Oral 120 ml 350 ml 400 ml IV Total 1100 ml 500 ml 1000 ml Output Urine Total 975 ml 1 ml # Voids 0 2 # Bowel Movements 0 0 0 3 Result Diagram: 12/16/16 0610 12/16/16 0610 Objective Remarks GENERAL: Well-developed, cachectic, in no acute distress. alert and orientated HEENT: Head is normocephalic without any lesions or masses noted. Facial features are symmetric. Eyes: Extraocular muscles are intact. Conjunctivae were clear. NECK: Supple without any masses. Trachea midline no deviation. No JVD, CARDIAC: Regular rhythm, regular rate. S1/S2 are heard. 2/6 ejection murmur, no gallops or rubs. LUNGS: Clear to auscultation bilaterally. No wheeze, rhonchi or rales. No use of accessory muscles on inspiration or expiration. ABDOMEN: Soft, nontender. Nondistended. Bowel sounds heard in all 4 quadrants. No organomegaly or masses. Negative rebound, negative guarding EXTREMITIES: No edema, pulses are equal bilaterally. No cyanosis or clubbing NEUROLOGY: Mood and affect appear appropriate. Cranial nerves II through XII grossly intact. Moving all extremities, speech is clear Urinary Catheter: No Vascular Central Line Catheter: No A/P Assessment and Plan Abdominal pain, persistent Multiple CT scan of the abdomen shows loops of prominent small bowel, with, shaped loop of bowel with maximum width being approximately 8 cm of the left side and right side gradually tapering to a narrow area. Suggesting volvulus Repeat CT with contrast shows distended loop bowel in the upper abdomen represents transverse colon but no volvulus. Flat and upright abdominal x-ray shows distention of the ascending colon and proximal, transverse colon. There are air-fluid levels in the upright view. Nondilated small bowel. The cecum and ascending colon are prominent in size. National Sales Executive was consulted and was recommending the abdominal x-ray and possible endoscopy. However with the new findings on x-ray it was recommended patient undergo a Gastrografin enema for diagnostic/therapeutic reasons Gastrografin enema was performed which indicated successful Gastrografin enema without colonic obstruction or stricture Leukocytosis Significantly improved Monitor CBC Electrolyte abnormality with hyponatremia, hypokalemia Continue monitor and replete as needed Hyperglycemia Hemoglobin A1c 5.7 Anxiety/Depression Continue home medications to include clonazepam 1 mg by mouth daily at bedtime, duloxetine 60 mg daily. Hypothyroidism Continue home medication levothyroxine 75 mg daily. DVT prevention Lovenox. Full code Discharge Planning Discharge planning was tolerating by mouth, pain controlled and cleared by burling and joining supervisor Forrest Bradley Dec 16, 2016 12:59
[2016-12-16] MEDS ORDERED: POTASSIUM CHLORIDE 25 MEQ EFFERVESCENT TAB PO ONE (13:00)
[2016-12-16 13:22] VITALS: BP 170/96
[2016-12-16 16:00] VITALS: BP 114/68; PULSE 79; RESP 18; TEMP 98; O2SAT 96
--- NOTE | 2016-12-16 17:04 | HHI.GIFU ---
Subjective Remarks Patient was seen and examined today, was sleeping comfortably, patient was seen and examined today, she was laying in bed comfortably, she had Gastrografin enema yesterday, no sign of obstruction in the colon or volvulus. Feels better today than yesterday Objective Vitals I&O Vital Signs Date Time Temp Pulse Resp B/P (MAP) Pulse Ox O2 Delivery O2 Flow Rate FiO2 12/16/16 13:22 170/96 (120) 12/16/16 12:00 96.6 75 16 199/101 (133) 95 12/16/16 08:00 96.6 72 17 98/60 (73) 98 12/16/16 00:00 98.4 75 16 107/67 (80) 95 12/15/16 20:00 98.1 70 16 109/65 (80) 94 I/O 12/15/16 12/15/16 12/15/16 12/16/16 12/16/16 12/16/16 06:59 14:59 22:59 06:59 14:59 22:59 Intake Total 1220 ml 350 ml 500 ml 1400 ml 90 ml Output Total 975 ml 1 ml Balance 1220 ml -625 ml 500 ml 1400 ml 89 ml Intake Oral 120 ml 350 ml 400 ml 90 ml IV Total 1100 ml 500 ml 1000 ml Output Urine Total 975 ml 1 ml # Voids 0 2 # Bowel Movements 0 0 0 3 Laboratory Laboratory Tests Test 12/16/16 06:10 White Blood Count 9.1 Red Blood Count 3.93 Hemoglobin 13.0 Hematocrit 38.7 Mean Corpuscular Volume 98.3 Mean Corpuscular Hemoglobin 33.0 Mean Corpuscular Hemoglobin Concent 33.5 Red Cell Distribution Width 15.3 Platelet Count 400 Mean Platelet Volume 8.0 Neutrophils (%) (Auto) 57.6 Lymphocytes (%) (Auto) 27.3 Monocytes (%) (Auto) 12.3 Eosinophils (%) (Auto) 1.8 Basophils (%) (Auto) 1.0 Neutrophils # (Auto) 5.2 Lymphocytes # (Auto) 2.5 Monocytes # (Auto) 1.1 Eosinophils # (Auto) 0.2 Basophils # (Auto) 0.1 CBC Comment DIFF FINAL Differential Comment Blood Urea Nitrogen 17 Creatinine 0.85 Random Glucose 105 Calcium Level 8.0 Magnesium Level 1.8 Sodium Level 140 Potassium Level 3.1 Chloride Level 107 Carbon Dioxide Level 22.5 Anion Gap 11 Estimat Glomerular Filtration Rate 66 Date/Time Source Procedure Growth Status 12/13/16 13:25 Blood Peripheral Aerobic Blood Culture - Preliminary NO GROWTH IN 3 DAYS Resulted 12/13/16 13:25 Blood Peripheral Anaerobic Blood Culture - Preliminary NO GROWTH IN 3 DAYS Resulted Physical Exam HEENT: Pupils round and reactive to light; normocephalic; atraumatic; no jaundice. Throat is clear. NECK: Neck is supple, no JVD, no lymphadenopathy. CHEST: Chest is clear to auscultation and percussion. CARDIAC: Regular rate and rhythm with no murmur gallop or rubs. ABDOMEN: Soft, Mildly distended, Minimal epigastric tenderness And throughout the abdomen; no hepatosplenomegaly; bowel sounds are present in all four quadrants. EXTREMITIES: No clubbing, cyanosis, or edema. SKIN: Normal; no rash; no jaundice. BURSAR: No focal deficits; alert and oriented times three. Assessment and Plan Plan Patient is here because of abdominal pain which was sudden nausea vomiting, patient has multiple surgical procedures in the past including gastric bypass and revision of the bypass Possibly partial small bowel obstruction versus gastroenteritis \, Patient getting worse today with more discomfort and nausea and slightly more distended abdomen 2016 Patient feeling better today, still mild abdominal discomfort, x-ray looked okay no colon obstruction Recommendation Clear liquid diet We'll advance it as tolerated Possible KUB in the morning Rhiannon Doshi MD Dec 16, 2016 17:04
[2016-12-16] MEDS: ENOXAPARIN SODIUM 40 MG/0.4 ML SYRINGE SQ SCH (20:00)
[2016-12-16 20:49] VITALS: BP 112/66; PULSE 73; RESP 16; TEMP 96.3; O2SAT 97
[2016-12-16] MEDS: clonazePAM 1 MG TAB PO SCH (20:49)
[2016-12-16] MEDS: TOPIRAMATE 25 MG TAB PO SCH (20:49)
[2016-12-16] MEDS: ACETAMINOPHEN 325 MG TAB PO PRN (23:24)
[2016-12-17 01:27] VITALS: BP 97/56; PULSE 72; RESP 18; TEMP 96.8; O2SAT 96
[2016-12-17] MEDS: metroNIDAZOLE 500 MG INJ 100 ML IV SCH ×2 (02:18→09:41)
[2016-12-17] MEDS: HYDROmorphone HCL PF 1 MG/ML VIAL IV PUSH PRN ×3 (02:20→09:46)
[2016-12-17] MEDS: LEVOTHYROXINE SODIUM 75 MCG TAB PO SCH (05:20)
[2016-12-17] MEDS: SODIUM CHLOR 0.9% 1000 ML INJ 1,000 ML IV SCH (07:29)
[2016-12-17 08:00] VITALS: BP 105/66; PULSE 73; RESP 18; TEMP 97.7; O2SAT 97
--- NOTE | 2016-12-17 09:04 | HHI.DCPOC ---
Discharge Care Plan Diagnosis: (1) Abdominal pain Goals to Promote Your Health * To prevent worsening of your condition and complications * To maintain your health at the optimal level Directions to Meet Your Goals Take your medications as prescribed Follow your dietary instruction Follow activity as directed Keep your appointments as scheduled Take your immunizations and boosters as scheduled If your symptoms worsen call your PCP, if no PCP go to Urgent Care Center or Emergency Room Smoking is Dangerous to Your Health. Avoid second hand smoke Call the 24-hour hour crisis hotline for domestic abuse at [facility] Dec 17, 2016 09:04
[2016-12-17] MEDS: OXYBUTYNIN CHLORIDE 5 MG TAB PO SCH (09:35)
[2016-12-17] MEDS: PANTOPRAZOLE SOD 40 MG DELAYED RELEASE TAB PO SCH (09:35)
[2016-12-17] MEDS: SUCRALFATE 1 GM TAB PO SCH ×2 (09:35→13:44)
[2016-12-17] MEDS: SODIUM CHLORIDE 0.9% FLUSH 10 ML FLUSH IV FLUSH SCH (09:35)
[2016-12-17] MEDS: DOCUSATE SODIUM 50 MG/SENNA 8.6 MG TAB PO SCH (09:35)
[2016-12-17] MEDS: DULoxetine HCl DR 60 MG CAP PO SCH (09:35)
[2016-12-17] MEDS: CIPROFLOXACIN 400 MG PREMIX 200 ML IV SCH (09:38)
[2016-12-17] MEDS ORDERED: TYLE325T PO (10:48)
--- NOTE | 2016-12-17 11:11 | HHI.DS ---
Discharge Summary Admission Date Dec 13, 2016 at 13:12 Discharge Date: Dec 17, 2016 Admitting Diagnosis intractable abdominal pain (1) Abdominal pain ICD Code: R10.9 - Unspecified abdominal pain Status: Acute (2) History of gastric bypass ICD Code: Z98.890 - Other specified postprocedural states (3) Anxiety and depression ICD Code: F41.8 - Other specified anxiety disorders Procedures none Brief History - From Admission Ms. Alfaro is a 71-year-old female with a history of gastric bypass and reversal who presents to the emergency department today due to progressive epigastric abdominal pain, nausea and vomiting that started yesterday afternoon. She cannot qualify if her pain is sharp or dull but states her pain is aggravating. She could not sleep all night due to persistent pain. She also had nausea and vomiting with bilious vomitus. No blood in the vomitus. Patient also had 3 bowel movements yesterday and no blood in the stool. No changes in bladder habits. Initial CT abdomen pelvis indicated possibility of volvulus. However, a repeat abdomen and pelvis with oral contrast showed no evidence of volvulus. Patient was not transferred to the main hospital after discussing with general surgery. CBC/BMP: 12/16/16 0610 12/16/16 0610 Significant Findings Laboratory Tests Test 12/15/16 14:55 12/16/16 06:10 Random Glucose 121 MG/DL (74-106) Potassium Level 3.4 MEQ/L (3.5-5.1) 3.1 MEQ/L (3.5-5.1) Red Blood Count 3.93 MIL/MM3 (4.00-5.30) Monocytes (%) (Auto) 12.3 % (0.0-8.0) Monocytes # (Auto) 1.1 TH/MM3 (0-0.9) Calcium Level 8.0 MG/DL (8.5-10.1) Estimat Glomerular Filtration Rate 66 ML/MIN (>89) Imaging Last Impressions Enema w/Water Soluble 12/16/16 0000 Signed Impressions: Service Date/Time: Friday, December 16, 2016 08:00 - CONCLUSION: 1. No colonic obstruction or stricture noted. 2. Degenerative changes and scoliosis of the lumbar spine. Anastacio Conner MD Abdomen X-Ray 12/15/16 0000 Signed Impressions: Service Date/Time: November 12:34 - CONCLUSION: Mild gaseous distention of the ascending colon but this is less distended than on the prior study. Otherwise, unremarkable exam. Ellis Puga Jr., MD Abdomen/Pelvis CT 12/13/16 0000 Signed Impressions: Service Date/Time: Tuesday, December 13, 2016 14:13 - CONCLUSION: Distended loop of bowel in the upper abdomen represents transverse colon indeterminate etiology but not sigmoid volvulus. Patient would benefit from GI consult and possibly barium enema for further evaluation Gurvinder Hayes MD PE at Discharge GENERAL: Well-developed, cachectic, in no acute distress. alert and orientated HEENT: Head is normocephalic without any lesions or masses noted. Facial features are symmetric. Eyes: Extraocular muscles are intact. Conjunctivae were clear. NECK: Supple without any masses. Trachea midline no deviation. No JVD, CARDIAC: Regular rhythm, regular rate. S1/S2 are heard. 2/6 ejection murmur, no gallops or rubs. LUNGS: Clear to auscultation bilaterally. No wheeze, rhonchi or rales. No use of accessory muscles on inspiration or expiration. ABDOMEN: Soft, nontender. Nondistended. Bowel sounds heard in all 4 quadrants. No organomegaly or masses. Negative rebound, negative guarding EXTREMITIES: No edema, pulses are equal bilaterally. No cyanosis or clubbing NEUROLOGY: Mood and affect appear appropriate. Cranial nerves II through XII grossly intact. Moving all extremities, speech is clear Pt update on day of discharge Patient with good bowel movements, abdominal pain is resolved and patient has tolerated diet. Hospital Course This patient is a 71-year-old female who had intractable abdominal pain which has been evaluated here in the hospital. She had inability to eat severely nauseated with severely slight imbalances. She had severe distention and was thought to Possibly have partial small bowel obstruction versus gastroenteritis versus volvulus. Symptoms seem to improve with conservative management and IV hydration as well as antibiotics. Patient was seen by gastroenterology consultation. Pt Condition on Discharge: Good Discharge Disposition: Discharge Home Discharge Time: > 30 minutes Discharge Instructions DIET: Follow Instructions for: As Tolerated, No Restrictions Activities you can perform: Regular-No Restrictions Follow up Referrals: Gastroenterology - 2 Weeks PCP Follow-up - 1 Week New Medications: Acetaminophen (Tylenol) 325 Mg Tab 650 MG PO Q6H PRN for pain, #90 TAB 0 Refills Continued Medications: Clonazepam (Clonazepam) 1 Mg Tab 1 MG PO HS, #60 TAB [address] (Duloxetine DR) 60 Mg Capdr 60 MG PO DAILY, #30 CAP 0 Refills Gabapentin (Neurontin) 300 Mg Cap 900 MG PO TID, #90 CAP 0 Refills Levothyroxine (Levothyroxine) 75 Mcg Tab 75 MCG PO DAILY for Thyroid, #30 TAB 0 Refills Omeprazole (Omeprazole) 40 Mg Cap 80 MG PO DAILY, #30 CAP 0 Refills Oxybutynin (Ditropan) 5 Mg Tab 5 MG PO DAILY for Urinary Symptom Managemen, #60 TAB 0 Refills Paroxetine (Paroxetine) 40 Mg Tab 40 MG PO DAILY, #30 TAB 0 Refills Paroxetine (Paroxetine) 10 Mg Tab 10 MG PO DAILY, #30 TAB 0 Refills Sucralfate (Carafate) 1 Gm Tab 1 GM PO QID for Ulcer Prevention, #120 TAB 0 Refills On empty stomach Topiramate (Topiramate) 50 Mg Tab 75 MG PO HS for Control Seizures, #60 TAB 0 Refills Jenny Rivera MD Dec 17, 2016 11:11
[2016-12-17 12:00] VITALS: BP 103/62; PULSE 67; RESP 16; TEMP 97.7; O2SAT 96
[2017-01-19] MEDS ORDERED: CARA1TAB6 PO (16:43)
[2017-01-23] MEDS ORDERED: TOPI1TAB36 PO (15:10)
[2017-01-23] MEDS ORDERED: CLON1TAB PO (15:41)
[2017-01-27] MEDS ORDERED: OXYB5TAB10 PO (14:34)
[2017-01-27] MEDS ORDERED: NEUR300C PO (14:34)
== END 2016-12-17 14:27 | disposition home or self-care (01) | DRG 392 ==
LOC: PHED 10:45 → PHEDA 13:12 → PH3A 16:11
PROVIDERS: ADMIT Hospitalist; ATTEND Hospitalist
DX: R10.13 Epigastric pain (principal); E87.1 Hypo-osmolality and hyponatremia; I48.91 Unspecified atrial fibrillation; E03.9 Hypothyroidism, unspecified; G43.909 Migraine, unspecified, not intractable, without status migrainosus; K27.9 Peptic ulcer, site unspecified, unspecified as acute or chronic, without hemorrhage or perforation; E87.6 Hypokalemia; M79.7 Fibromyalgia; R11.2 Nausea with vomiting, unspecified; Z98.84 Bariatric surgery status; Z90.710 Acquired absence of both cervix and uterus; F41.8 Other specified anxiety disorders; F17.210 Nicotine dependence, cigarettes, uncomplicated; K21.9 Gastro-esophageal reflux disease without esophagitis; H91.90 Unspecified hearing loss, unspecified ear; Z96.651 Presence of right artificial knee joint; R94.31 Abnormal electrocardiogram [ECG] [EKG]
CPT/HCPCS: 74020; 74176; 74177; 74270; 80048; 80053; 81001; 83036; 83605; 83690; 83735; 85025; 87040; 93005; 96361; 96374; 96375; C9113; J0744; J1170; J1650; J2405; J2543; J3480; J7030; J7040; Q9963; Q9967

== ENCOUNTER 2017-04-19 19:58 | Emergency (ER) | payer MEDICARE, OTHER ==
[~2017-04-19] VITALS: Ht 157.5 cm; Wt 53.5 kg
[~2017-04-19 19:58] MED LIST changes: +ALBUAER3 INH; +ESTR1 PO; +FENO48TA PO; -NORC5TAB PO; -OXYB5TAB10 PO; +OXYB5TAB8 PO; +PARO10TA2 PO; -PARO1TAB71 PO; -PROP1CAP32 PO; -TOPI1TAB36 PO; +TOPI50TA7 PO; +TYLE325T PO; -ZOFR4TAB3 SL
[2017-04-19 20:03] VITALS: BP 114/70; PULSE 83; RESP 16; TEMP 99; O2SAT 99
[2017-04-19] MEDS ORDERED: DIFL100T PO (20:36)
--- NOTE | 2017-04-19 20:36 | PD ---
HPI Chief Complaint: ENT Complaint Time Seen by Provider: 20:16 Travel History International Travel<30 days: No Contact w/Intl Traveler<30days: No Traveled to known affect area: No History of Present Illness HPI 71-year-old female here with complaint of thrush. She reports she's had similar episodes in the past after taking antibiotics. She recently finished a ten-day course of 2 different antibiotics for diverticulitis. She reports she now has white patches and oral pain. No fever or chills. No difficulty eating or drinking. Symptom severity is moderate. No aggravating or alleviating factors. She reports she saw her primary care doctor Dr. Tobar today who diagnosed her with rash and was supposed to send in an order for Diflucan to her pharmacy. She reports the pharmacy did not receive the order which is why she came here. PFSH Past Medical History Arthritis: Yes Asthma: No Autoimmune Disease: No Anxiety: Yes Heart Rhythm Problems: Yes (A FIB) Cardiovascular Problems: Yes (hx of a-fib) Chest Pain: No Congestive Heart Failure: No COPD: No Cerebrovascular Accident: No Diminished Hearing: Yes Fibromyalgia: Yes Gastrointestinal Disorders: Yes GERD: Yes Genitourinary: No Headaches: Yes (MIGRAINES) Hiatal Hernia: No Immune Disorder: No Kidney Stones: No Musculoskeletal: Yes Neurologic: Yes Reproductive: Yes Respiratory: No Migraines: Yes Renal Failure: No Seizures: Yes (one earlier this year) Sleep Apnea: No Ulcer: Yes Tetanus Vaccination: Unknown Influenza Vaccination: Yes ?: Not Past Surgical History Abdominal Surgery: Yes (bypass) Cardiac Surgery: No Ear Surgery: No Endocrine Surgery: No Eye Surgery: No Genitourinary Surgery: No Gynecologic Surgery: Yes (hysto) Hysterectomy: Yes Joint Replacement: Yes (right knee) Oral Surgery: No Thoracic Surgery: No Other Surgery: Yes (GASTRIC BYPASS AND REVERSAL) Social History Alcohol Use: No Tobacco Use: Yes (1 ppd) Substance Use: No Allergies-Medications (Allergen,Severity, Reaction): Coded Allergies: codeine (Unverified Allergy, Intermediate, headache,n/v, 04/19/17) morphine (Unverified Allergy, Intermediate, headache,n/v, 04/19/17) oxycodone (Unverified Allergy, Intermediate, headaches,n/v, 04/19/17) zolpidem (Verified Allergy, Mild, mood changes, 04/19/17) Reported Meds & Prescriptions Reported Meds & Active Scripts Active Diflucan (Fluconazole) 100 Mg Tab 100 Mg PO DAILY 7 Days Proair Hfa 8.5 GM Inh (Albuterol Sulfate) 90 Mcg/Act Aer 2 Puff INH Q4-6H PRN 108 mcg/actuation Topiramate 50 Mg Tab 75 Mg PO HS Duloxetine DR (Duloxetine HCl) 60 Mg Capdr 60 Mg PO DAILY Clonazepam 1 Mg Tab 1 Mg PO HS Carafate (Sucralfate) 1 Gm Tab 1 Gm PO QID On empty stomach Levothyroxine (Levothyroxine Sodium) 75 Mcg Tab 75 Mcg PO DAILY Paroxetine (Paroxetine HCl) 40 Mg Tab 40 Mg PO HS One tablet each night. Paroxetine (Paroxetine HCl) 10 Mg Tab 10 Mg PO DAILY One tablet each morning Fenofibrate 48 Mg Tab 48 Mg PO DAILY Neurontin (Gabapentin) 300 Mg Cap 900 Mg PO TID Estrace (Estradiol) 1 Mg Tab 1 Mg PO DAILY Take 1 tablet once a day for 2 weeks. Then take 1 tablet Monday/ each week after. Omeprazole 40 Mg Cap 40 Mg PO BID Ditropan (Oxybutynin Chloride) 5 Mg Tab 5 Mg PO DAILY Tylenol (Acetaminophen) 325 Mg Tab 650 Mg PO Q6H PRN Review of Systems Except as stated in HPI: all other systems reviewed are Neg General / Constitutional: No: Fever Eyes: No: Visual changes HENT: No: Headaches Cardiovascular: No: Chest Pain or Discomfort Respiratory: No: Shortness of Breath Physical Exam Narrative GENERAL: Alert female. Well-appearing. SKIN: Warm and dry. HEAD: Normocephalic. EYES: No injection or drainage. ENT: White patches scattered across the oral mucosa. The uvula is midline. Airway is patent. NECK: Supple, trachea midline. No lymphadenopathy. CARDIOVASCULAR: Regular rate and rhythm RESPIRATORY: Breath sounds equal bilaterally. No accessory muscle use. GASTROINTESTINAL: Abdomen soft, non-tender, nondistended. Data Data Last Documented VS Vital Signs Date Time Temp Pulse Resp B/P (MAP) Pulse Ox O2 Delivery O2 Flow Rate FiO2 04/19/17 20:03 99.0 83 16 114/70 (85) 99 MDM Medical Decision Making Medical Screen Exam Complete: Yes Emergency Medical Condition: Yes Differential Diagnosis Thrush, aphthous ulcer, other Narrative Course 71 -year-old female here with oral thrush after completing a round of 2 antibiotics for diverticulitis. She has had this in the past. She is well- appearing. Her vital signs are stable. Diagnosis Primary Impression: Thrush, oral Referrals: Km Tobar MD R2 Additional Instructions: Diflucan as prescribed. Follow-up with Dr. Tobar. Scripts Fluconazole (Diflucan) 100 Mg Tab 100 MG PO DAILY for Infection for 7 Days, #7 TAB 0 Refills Prov: Darling Baird 04/19/17 Disposition: 01 DISCHARGE HOME Condition: Stable Darling Baird Apr 19, 2017 20:36
[2017-04-20] MEDS ORDERED: NEUR300C PO (16:27)
[2017-04-21] MEDS ORDERED: NYST1000 SWISH-SWAL (14:39)
[2017-04-29] MEDS ORDERED: CLON1TAB PO (09:12)
[2017-05-02] MEDS ORDERED: CARA1TAB6 PO (08:39)
== END 2017-04-19 20:50 | disposition home or self-care (01) ==
LOC: PHEFT 19:58
DX: B37.0 Candidal stomatitis (principal); M19.90 Unspecified osteoarthritis, unspecified site; F41.9 Anxiety disorder, unspecified; I48.91 Unspecified atrial fibrillation; M79.7 Fibromyalgia; K21.9 Gastro-esophageal reflux disease without esophagitis; R56.9 Unspecified convulsions; F17.200 Nicotine dependence, unspecified, uncomplicated; Z87.19 Personal history of other diseases of the digestive system
CPT/HCPCS: 99283

== ENCOUNTER 2017-05-08 17:11 | Emergency (ER) | payer MEDICARE, OTHER | END 2017-05-08 18:21 | disposition EXP | LOC: PHED 18:21 | DX: I46.9 Cardiac arrest, cause unspecified (principal); I48.91 Unspecified atrial fibrillation; M79.7 Fibromyalgia; K21.9 Gastro-esophageal reflux disease without esophagitis; F41.9 Anxiety disorder, unspecified; F17.210 Nicotine dependence, cigarettes, uncomplicated; Z88.5 Allergy status to narcotic agent; Z79.899 Other long term (current) drug therapy | CPT/HCPCS: 92950; 99285-25 ==